=== PATIENT | female | born 1970 | race Caucasian/White ===

== ENCOUNTER → 2016-12-28 | Outpatient (CLI) | payer MEDICAID ==
[2016-12-28 09:15] LABS: ALT 61 U/L (9-52); AST 36 U/L (14-36); Alkaline Phosphatase 66 U/L (38-126); Anion Gap 11 mmol/L; Blood Urea Nitrogen 11 mg/dL (7-17); Calcium 9.2 mg/dL (8.4-10.2); Carbon Dioxide 28 mmol/L (22-30); Chloride 105 mmol/L (98-107); Glucose 90 mg/dL (74-99); Non-African American GFR(MDRD) >60 (>60 ml/min/1.73 sqM); Potassium 3.7 mmol/L (3.5-5.1); Sodium 144 mmol/L (137-145); Total Bilirubin 0.9 mg/dL (0.2-1.3); Total Protein 7.2 g/dL (6.3-8.2)
== END | disposition home or self-care (01) ==
LOC: RADXRMAIN 06:41
PROVIDERS: ATTEND Internal Medicine Critical Care Medicine
DX: D86.0 Sarcoidosis of lung (principal)
CPT/HCPCS: 80053

== ENCOUNTER 2017-02-18 21:43 | Emergency (ER) | payer MEDICAID ==
[2017-02-18 22:05] VITALS: RESP 20
--- NOTE | 2017-02-18 22:16 | ED ---
General Adult HPI - General Chief complaint: Extremity Injury, Lower Stated complaint: R ankle injury Time Seen by Provider: 02/18/17 22:07 Source: patient, RN notes reviewed Mode of arrival: wheelchair Limitations: no limitations - History of Present Illness Initial comments: 46-year-old female presenting for right ankle injury. Patient states that she was playing dodge ball and tripped on a ball and rolled her right ankle. She states that she is having trouble ambulating on this since the event occurred. She has pain and swelling on the lateral part of the ankle. She denies any other injury. - Related Data Home Medications Medication Instructions Recorded Confirmed B Complex-Vit C-Vit E-Zinc [Z-Bec] 1 each PO DAILY@1200 07/27/15 02/18/17 Esomeprazole Magnesium [NexIUM] 20 mg PO DAILY PRN 09/21/16 02/18/17 Hydroxychloroquine Sulfate 200 mg PO BID 09/21/16 02/18/17 [Plaquenil] Ferdinand-3 Fatty Acids/Fish Oil [Fish 1 each PO DAILY 09/21/16 02/18/17 Oil 1,000 mg Softgel] Ranitidine HCl [Zantac] 150 mg PO DAILY PRN 09/21/16 02/18/17 predniSONE 10 mg PO DAILY 09/21/16 02/18/17 Previous Rx's Medication Instructions Recorded Acetaminophen-Codeine 300-30mg 1 tab PO Q6H PRN #12 tablet 02/18/17 [Tylenol #3] Allergies Allergy/AdvReac Type Severity Reaction Status Date / Time azithromycin Allergy Unknown Verified 02/18/17 22:04 iodine Allergy Vomiting Verified 02/18/17 22:04 Penicillins Allergy Rash/Hives Verified 02/18/17 22:04 povidone-iodine AdvReac Rash/Hives Verified 02/18/17 22:04 [From Betadine] soap [From Betadine] AdvReac Rash/Hives Verified 02/18/17 22:04 Review of Systems ROS Statement: Those systems with pertinent positive or pertinent negative responses have been documented in the HPI. ROS Other: All systems not noted in ROS Statement are negative. Past Medical History Past Medical History: GERD/Reflux Additional Past Medical History / Comment(s): sarcoidosis, neurosarcoidosis, premature ovarian failure History of Any Multi-Drug Resistant Organisms: None Reported Past Surgical History: Orthopedic Surgery Additional Past Surgical History / Comment(s): plantar fasciitis-BILAT FEET. LAPAROSCOPY FOR ENDOMETRIOSIS Past Anesthesia/Blood Transfusion Reactions: No Reported Reaction Past Psychological History: No Psychological Hx Reported Smoking Status: Never smoker Past Alcohol Use History: Occasional Past Drug Use History: None Reported - Past Family History Father Family Medical History: Cancer Additional Family Medical History / Comment(s): PROSTATE Mother Family Medical History: Cancer Additional Family Medical History / Comment(s): SKIN General Exam - General Exam Comments Initial Comments: General: Awake and Alert. No acute distress. Does not appear acutely ill. Eyes: BJORN, EOM intact. No nystagmus. No scleral icterus. HENT: Atraumatic, normocephalic. Mucous membranes moist. Trachea midline. Neck: The neck is supple, there is no tenderness or JVD. Cardiovascular: Regular rate and rhythm. No murmur, rub, or gallop is appreciated. Distal pulses intact. Respiratory: Lungs are clear to auscultation bilaterally. No wheezes, rales, rhonchi. No respiratory distress. Gastrointestinal: Soft, Nontender. No rebound or guarding. Non-distended. No masses or organomegaly noted. No CVA tenderness. Musculoskeletal: Right ankle with lateral swelling and possible deformity. Pain with range of motion. No tenderness. Normal ROM. No gross deformity. No strength deficits. Neurological: A&Ox3. CN II-XII grossly intact, There are no obvious motor or sensory deficits. Coordination appears grossly intact. Speech is normal. Skin: Skin is warm and dry and no rashes or lesions are noted. Psychiatric: Cooperative, appropriate mood & affect, normal judgment. Limitations: no limitations Course Vital Signs 02/18/17 02/18/17 22:03 23:15 Temperature 98.2 F 97.9 F Pulse Rate 100 89 Respiratory 20 20 Rate Blood Pressure 146/70 137/65 O2 Sat by Pulse 97 98 Oximetry Procedures - Orthopedic Splinting/Casting Injury #1 Side: right Lower Extremity Injury Location: ankle Lower Extremity Immobilizer: posterior splint Medical Decision Making - Medical Decision Making 46-year-old female presenting for right ankle injury. Declines pain medication in the ED. XR without fracture, likely high grade sprain given swelling and pain. Has crutches at home. Put in a posterior OCL splint for ankle support. Discussed advancing weightbearing as tolerated with crutches support. Discussed follow-up with orthopedic. Discussed concerning signs symptoms related return to ED. Discussed returning in 4-5 days if pain is not improved for repeat x-ray rule out occult fracture. Patient is agreeable with plan and discharge home. Rx for pain medicine provided. - Radiology Data Radiology results: report reviewed, image reviewed Disposition Clinical Impression: Right ankle sprain Disposition: HOME SELF-CARE Condition: Stable Instructions: Ankle Sprain (ED) Additional Instructions: Please wear ankle cast and use crutches and advance to weight bearing over the next 1-2 weeks. Please follow up with Ortho Monday or Monday. If pain is not improving in 4-5 days, please follow up for repeat imaging to rule out occult fracture. Prescriptions: Acetaminophen-Codeine 300-30mg [Tylenol #3] 1 tab PO Q6H PRN #12 tablet PRN Reason: Pain Referrals: Jose Miller MD [Primary Care Provider] - 1-2 days Time of Disposition: 23:15
--- NOTE | 2017-02-18 22:42 | XR ---
EXAM: XR Right Ankle Complete, 3 or More Views. CLINICAL HISTORY: Pain. TECHNIQUE: Frontal, lateral and oblique views of the right ankle. COMPARISON: No relevant prior studies available. FINDINGS: Bones/joints: Small well-corticated ossific focus inferior to the tip of the medial malleolus appears chronic. Allowing for this there is no acute fracture seen. Minor enthesopathic changes at the Achilles insertion site with small plantar calcaneal spur noted on the lateral view. No dislocation. Soft tissues: There is anterolateral soft tissue swelling. IMPRESSION: 1. Mild anterolateral soft tissue swelling. 2. Small well-corticated ossific focus that appears chronic, inferior to the tip of the medial malleolus. 3. Allowing for this there is no acute osseous abnormality seen. Acute nondisplaced fractures may initially be radiographically occult. Short- term follow-up could be obtained in 5-7 days if concern or symptoms persist.
[2017-02-18 23:16] VITALS: BP 137/65; PULSE 89; TEMP 97.9
== END 2017-02-18 23:15 | disposition home or self-care (01) ==
LOC: EC 21:43
DX: S93.401A Sprain of unspecified ligament of right ankle, initial encounter (principal); K21.9 Gastro-esophageal reflux disease without esophagitis; Z79.52 Long term (current) use of systemic steroids; Z79.899 Other long term (current) drug therapy; Z88.0 Allergy status to penicillin; Z88.1 Allergy status to other antibiotic agents; Z91.09 Other allergy status, other than to drugs and biological substances; Z88.8 Allergy status to other drugs, medicaments and biological substances; X50.9XXA Other and unspecified overexertion or strenuous movements or postures, initial encounter; W22.8XXA Striking against or struck by other objects, initial encounter; Y93.69 Activity, other involving other sports and athletics played as a team or group
CPT/HCPCS: 29515; 99283

== ENCOUNTER → 2017-08-22 | Outpatient (CLI) | payer MEDICAID ==
[2017-08-22 08:30] LABS: Basophils % (A) 1 %; CH 29.5; CHCM 33.3; Eosinophils # (A) 0.1 k/uL (0-0.7); Eosinophils % (A) 3 %; HCT 43.4 % (34.0-46.0); HDW 2.64; HGB 14.9 gm/dL (11.4-16.0); Luc # (Auto) 0.14; Luc % (Auto) 3; Lymphocytes % (A) 43 %; MCH 30.5 pg (25.0-35.0); MCHC 34.2 g/dL (31.0-37.0); MCV 89.1 fL (80.0-100.0); Mean Platelet Volume 6.5; Monocytes # (A) 0.3 k/uL (0-1.0); Monocytes % (A) 7 %; Neutrophils % (A) 43 %; RBC 4.87 m/uL (3.80-5.40); RDW 13.3 % (11.5-15.5); WBC 4.5 k/uL (3.8-10.6)
[2017-08-22 08:35] LABS: ALT 75 U/L (9-52); AST 39 U/L (14-36); Alkaline Phosphatase 91 U/L (38-126); Anion Gap 10 mmol/L; Blood Urea Nitrogen 12 mg/dL (7-17); Calcium 9.4 mg/dL (8.4-10.2); Carbon Dioxide 26 mmol/L (22-30); Chloride 106 mmol/L (98-107); Cholesterol 204 mg/dL (<200); Glucose 94 mg/dL (74-99); HDL Cholesterol 63 mg/dL (40-60); Non-African American GFR(MDRD) >60 (>60 ml/min/1.73 sqM); Potassium 4.1 mmol/L (3.5-5.1); Sodium 142 mmol/L (137-145); Total Bilirubin 0.8 mg/dL (0.2-1.3); Total Protein 7.1 g/dL (6.3-8.2)
== END ==
LOC: RADXRMAIN 06:59
PROVIDERS: ATTEND Family Medicine
DX: E03.9 Hypothyroidism, unspecified (principal); E66.9 Obesity, unspecified; D86.9 Sarcoidosis, unspecified
CPT/HCPCS: 80053; 80061; 84439; 84443; 85025

== ENCOUNTER → 2017-09-01 | Outpatient (CLI) | payer MEDICAID ==
--- NOTE | 2017-09-01 15:06 | US ---
EXAMINATION TYPE: US abdomen complete DATE OF EXAM: 09/01/2017 COMPARISON: NONE CLINICAL HISTORY: R74.8 Elevated liver enymes. EXAM MEASUREMENTS: Liver Length: 16.0 cm Gallbladder Wall: 0.1 cm CBD: 0.3 cm Spleen: 11.1 cm Right Kidney: 10.7 x 4.8 x 5.1 cm Left Kidney: 11.2 x 4.9 x 4.9 cm Pancreas: Tail obscured by overlying bowel gas Liver: Increased attenuation, decreased visualization of vessels suggestive of fatty infiltrate Gallbladder: wnl Evidence for sonographic Harrell's sign: no CBD: limited visualization, appears wnl Spleen: wnl Right Kidney: No hydronephrosis or masses seen Left Kidney: No hydronephrosis or masses seen Upper IVC: wnl Abd Aorta: wnl The liver is coarse in its overall echo texture. The intrahepatic portion of the IVC and proximal abd ominal aorta are within normal limits. There is no evidence of cholelithiasis. Common bile duct is unremarkable. The visualized portions of the pancreas are homogenous. The spleen is unremarkable. Kidneys are symmetric and free of hydronephrosis. No renal lesions are seen. IMPRESSION: 1. Fatty liver.
== END | disposition home or self-care (01) ==
LOC: RADUSMAIN 06:35
PROVIDERS: ATTEND Family Medicine
DX: K76.0 Fatty (change of) liver, not elsewhere classified (principal); R74.9 Abnormal serum enzyme level, unspecified
CPT/HCPCS: 76700

== ENCOUNTER → 2017-10-20 | Outpatient (CLI) | payer MEDICAID ==
--- NOTE | 2017-10-20 15:02 | MR ---
EXAMINATION TYPE: MR brain wo/w con DATE OF EXAM: 10/20/2017 COMPARISON: 07/27/2015 HISTORY: Neurosarcoidosis, difficulty with memory, intermittent pain in parotid glands TECHNIQUE: Multiplanar, multisequence images of the brain and brainstem is performed without and with IV contras t, utilizing 9 mL intravenous Gadavist . FINDINGS: Diffusion weighted images demonstrate no evidence of a recent infarct or other diffusion ab normality. The multiple foci of T2/FLAIR hyperintensity without enhancement or surrounding vasogenic edema are s imilar in number to the prior of 07/27/2015 but slightly pronounced and more conspicuous than on the p rior exam. The largest on the right is seen on flair axial fat sat image 19 measuring 4 mm and previo usly measuring 3 mm. The largest on the left is seen on image 16 measuring 5 mm and previously measur ing 4 mm. No abnormal post contrast enhancement is seen intracranially. No evidence of leptomeningeal enhancement. There is no evidence of extra-axial fluid collection. The ventricular system and cister nal spaces are normal in size and appearance. The brain volume is age appropriate. Midline structures demonstrate normal morphology. The craniocervical junction appears within normal limits. The visualized sinuses are clear and the globes are intact. T2 mildly hypointense structure of the peripheral superficial lobe of the right parotid gland seen on T2 fat sat image 4 and partially visualized on postcontrast T1 axial image 3 appears to demonstrate enhancement. This could represent a lymph node within the parotid gland as it is unchanged dating [facility] k to 07/27/2015. Within the visualized parotid glands no new finding is seen. Lymph node is noted with in the left parotid gland on T2 fat sat axial image 2. This is also stable from the prior exam of 201 5. IMPRESSION: Stable number with slight increase in size and conspicuity of the nonenhancing T2/FLAIR hyperintense white matter foci that could be related to microangiopathy or the patient's known neurosarcoidosis. T here is no leptomeningeal enhancement or air enhancement around the cisternal spaces. Overall no abno rmal intracranial enhancement.
== END | disposition home or self-care (01) ==
LOC: RADMRIMAIN 13:45
PROVIDERS: ATTEND Internal Medicine Critical Care Medicine
DX: R90.82 White matter disease, unspecified (principal); D86.9 Sarcoidosis, unspecified
CPT/HCPCS: 70553; A9581

== ENCOUNTER → 2018-01-24 | Outpatient (CLI) | payer MEDICAID ==
--- NOTE | 2018-01-24 09:02 | CT ---
EXAMINATION TYPE: CT abdomen pelvis w con DATE OF EXAM: 01/24/2018 HISTORY: RLQ, LUQ pain, history of sarcoid CT DLP: 1831mGycm Automated Exposure Control for Dose Reduction was Utilized. CONTRAST: CT scan of the abdomen and pelvis is performed with IV Contrast, patient injected with 100 mL of Omni paque 300. COMPARISON: None. FINDINGS: LUNG BASES: No significant abnormality is appreciated. LIVER/GB: Liver appears diffusely hypoattenuated compatible with mild hepatic steatosis with minimal sparing around the gallbladder fossa in segment IVb of the liver. PANCREAS: No significant abnormality is seen. No ductal dilatation. SPLEEN: No significant abnormality is seen. No splenomegaly. ADRENALS: No significant abnormality is seen. No nodules. KIDNEYS: There are 3 punctate 1 to 2 mm right nonobstructing renal calculi and a 4 mm anterior left l ower pole renal lesion that is too small to accurately characterize. No evidence of hydroureteronephr osis or obstructive uropathy. Urinary bladder is partially decompressed but appears unremarkable. Sma ll urachal remnant is incidentally noted. BOWEL: Appendix is elongated extending into the low right hemipelvis. No periappendiceal fat strandin g. Appendix is air-filled and within normal limits of size. Bowel is nondilated. UTERUS/ADNEXA: No gross abnormality seen. LYMPH NODES: No greater than 1cm abdominal or pelvic lymph nodes are appreciated. OSSEOUS STRUCTURES: No significant abnormality is seen. OTHER: There is diastases recti and a subcentimeter fat filled umbilical hernia. IMPRESSION: 1. No CT findings to correspond to the patient's left upper quadrant pain. 2. Findings most compatible with mild hepatic steatosis. Correlate with LFTs. 3. 3 nonobstructing punctate right renal calculi. No evidence of hydronephrosis of either kidney.
== END ==
LOC: RADXRMAIN 07:36
PROVIDERS: ATTEND Family Medicine
DX: N20.0 Calculus of kidney (principal); D86.9 Sarcoidosis, unspecified
CPT/HCPCS: 74177; Q9967

== ENCOUNTER 2018-02-23 22:13 | Emergency (ER) | payer MEDICAID ==
[2018-02-23 22:22] LABS: Glucose,Whole Blood 104 mg/dL (75-99)
[2018-02-23 22:26] VITALS: TEMP 97.8
[2018-02-23] MEDS ORDERED: SODIUM CHLORIDE 0.9% 1,000 ML IV STA (22:26)
[2018-02-23] MEDS ORDERED: SODIUM CHLORIDE 0.9% 1,000 ML IV ONE (22:27)
--- NOTE | 2018-02-23 22:30 | ED ---
General Adult HPI - General Chief complaint: Syncope Stated complaint: Syncope, NVD Time Seen by Provider: 02/23/18 22:16 Source: patient, RN notes reviewed Mode of arrival: EMS Limitations: no limitations - History of Present Illness Initial comments: 47-year-old female presents for evaluation of syncopal episode. Patient states that earlier in the evening, she developed profound diarrhea, she had 8-10 episodes of watery diarrhea, she believes this was secondary to a fish sandwich she did eat around noon. She had one episode of vomiting and some right lower quadrant abdominal pain which she states is chronic in nature, and has been evaluated with a computed tomography scan approximately one month ago. Pain is unchanged today. No upper abdominal pain. Denies fever or chills. Denies cough or URI symptoms. Denies chest pain or shortness of breath. She states that she fell forward striking her right knee and chin. No significant injury to the patient was only unconscious for several minutes, she was found by her son. She did feel lightheaded prior to the event. No palpitations or chest pains preceding her syncopal episode. - Related Data Home Medications Medication Instructions Recorded Confirmed B Complex-Vit C-Vit E-Zinc [Z-Bec] 1 tab PO DAILY 07/27/15 02/23/18 Ergocalciferol (Vitamin D2) 50,000 unit PO WE 02/23/18 02/23/18 [Vitamin D2] Previous Rx's Medication Instructions Recorded Ondansetron Odt [Zofran Odt] 4 mg PO Q8HR PRN #10 tab 02/24/18 Allergies Allergy/AdvReac Type Severity Reaction Status Date / Time azithromycin Allergy Unknown Verified 02/23/18 23:13 iodine Allergy Rash/Hives/ Verified 02/23/18 23:13 Vomiting Penicillins Allergy Rash/Hives Verified 02/23/18 23:13 povidone-iodine AdvReac Rash/Hives Verified 02/23/18 23:13 [From Betadine] soap [From Betadine] AdvReac Rash/Hives Verified 02/23/18 23:13 Review of Systems ROS Statement: Those systems with pertinent positive or pertinent negative responses have been documented in the HPI. ROS Other: All systems not noted in ROS Statement are negative. Past Medical History Past Medical History: GERD/Reflux Additional Past Medical History / Comment(s): sarcoidosis, neurosarcoidosis, premature ovarian failure History of Any Multi-Drug Resistant Organisms: None Reported Past Surgical History: Orthopedic Surgery Additional Past Surgical History / Comment(s): plantar fasciitis-BILAT FEET. LAPAROSCOPY FOR ENDOMETRIOSIS Past Anesthesia/Blood Transfusion Reactions: No Reported Reaction Past Psychological History: No Psychological Hx Reported Smoking Status: Never smoker Past Alcohol Use History: Occasional Past Drug Use History: None Reported - Past Family History Father Family Medical History: Cancer Additional Family Medical History / Comment(s): PROSTATE Mother Family Medical History: Cancer Additional Family Medical History / Comment(s): SKIN General Exam Limitations: no limitations General appearance: alert, in no apparent distress Head exam: Present: atraumatic, normocephalic Eye exam: Present: normal appearance. Absent: PERRL, EOMI ENT exam: Present: mucous membranes dry Neck exam: Present: normal inspection. Absent: tenderness, meningismus Respiratory exam: Present: normal lung sounds bilaterally. Absent: respiratory distress, wheezes, rales Cardiovascular Exam: Present: normal rhythm, tachycardia GI/Abdominal exam: Present: soft, tenderness (Mild right lower quadrant tenderness to palpation). Absent: distended, guarding, rebound Extremities exam: Present: normal inspection, full ROM, normal capillary refill. Absent: tenderness, pedal edema Neurological exam: Present: alert, oriented X3, CN II-XII intact. Absent: motor sensory deficit Psychiatric exam: Present: normal affect, normal mood Skin exam: Present: warm, dry, intact. Absent: cyanosis, diaphoretic Course Vital Signs 02/23/18 22:22 Temperature 97.8 F Pulse Rate 108 H Respiratory 16 Rate Blood Pressure 126/72 O2 Sat by Pulse 100 Oximetry EKG Findings - EKG Comments: EKG Findings:: EKG, sinus tachycardia, ventricular rate 103, WA interval 138, QRS duration 82, QTC 453, no ST segment elevation or depression Medical Decision Making - Medical Decision Making 47-year-old female presenting with diarrhea, nausea vomiting, and syncopal episode. Patient appears volume depleted on exam, tachycardic dry mucous membranes. She does have some abdominal pain and right lower quadrant pain. X- rays obtained, shows air-fluid levels consistent with diarrhea. Laboratory studies are significant for leukocytosis 18.7, hemoglobin 14.1 H are normal, troponin negative urinalysis clear. Given the elevated white blood cell count of right lower quadrant pain although it is chronic, CT is obtained, this shows normal appendix, no significant finding to explain the patient's right lower quadrant pain. There is interstitial pulmonary infiltrate on CT. Patient admits that over the past week she had cough and chest congestion, this is improving. She will follow-up with her primary care physician for chest x-ray in the next several weeks. Patient is feeling better on reevaluation. She will be discharged home with nausea medication. She will maintain oral hydration, and return with any worsening or changing symptoms. - Lab Data Result diagrams: 02/23/18 22:25 02/23/18 22:25 Lab Results 02/23/18 02/23/18 02/23/18 Range/Units 22:21 22:25 22:25 WBC 18.7 H (3.8-10.6) k/uL RBC 4.97 (3.80-5.40) m/uL Hgb 14.1 (11.4-16.0) gm/dL Hct 42.5 (34.0-46.0) % MCV 85.5 D (80.0-100.0) fL MCH 28.3 (25.0-35.0) pg MCHC 33.1 (31.0-37.0) g/dL RDW 13.4 (11.5-15.5) % Plt Count 299 (150-450) k/uL Neutrophils % 87 % Lymphocytes % 7 % Monocytes % 4 % Eosinophils % 1 % Basophils % 0 % Neutrophils # 16.3 H (1.3-7.7) k/uL Lymphocytes # 1.3 (1.0-4.8) k/uL Monocytes # 0.7 (0-1.0) k/uL Eosinophils # 0.2 (0-0.7) k/uL Basophils # 0.1 (0-0.2) k/uL PT (9.0-12.0) sec INR (<1.2) APTT (22.0-30.0) sec Sodium (137-145) mmol/L Potassium (3.5-5.1) mmol/L Chloride (98-107) mmol/L Carbon Dioxide (22-30) mmol/L Anion Gap mmol/L BUN (7-17) mg/dL Creatinine (0.52-1.04) mg/dL Est GFR (CKD-EPI)AfAm (>60 ml/min/1.73 sqM) Est GFR (CKD-EPI)NonAf (>60 ml/min/1.73 sqM) Glucose (74-99) mg/dL POC Glucose (mg/dL) 104 H (75-99) mg/dL POC Glu Balance And [employer]er ID Danielito Bueno Calcium (8.4-10.2) mg/dL Magnesium (1.6-2.3) mg/dL Total Bilirubin (0.2-1.3) mg/dL AST (14-36) U/L ALT (9-52) U/L Alkaline Phosphatase (38-126) U/L Total Creatine Kinase 110 (30-135) U/L CK-MB (CK-2) 0.4 (0.0-2.4) ng/mL CK-MB (CK-2) Rel Index 0.4 Troponin I <0.012 (0.000-0.034) ng/mL Total Protein (6.3-8.2) g/dL Albumin (3.5-5.0) g/dL Urine Color Urine Appearance (Clear) Urine pH (5.0-8.0) Ur Specific [place] (1.001-1.035) Urine Protein (Negative) Urine Glucose (UA) (Negative) Urine Ketones (Negative) Urine Blood (Negative) Urine Nitrite (Negative) Urine Bilirubin (Negative) Urine Urobilinogen (<2.0) mg/dL Ur Leukocyte Esterase (Negative) Urine RBC (0-5) /hpf Urine WBC (0-5) /hpf Ur Squamous Epith Cells (0-4) /hpf Urine Bacteria (None) /hpf Hyaline Casts (0-2) /lpf Urine Mucus (None) /hpf 02/23/18 02/23/18 02/23/18 Range/Units 22:25 22:25 23:02 WBC (3.8-10.6) k/uL RBC (3.80-5.40) m/uL Hgb (11.4-16.0) gm/dL Hct (34.0-46.0) % MCV (80.0-100.0) fL MCH (25.0-35.0) pg MCHC (31.0-37.0) g/dL RDW (11.5-15.5) % Plt Count (150-450) k/uL Neutrophils % % Lymphocytes % % Monocytes % % Eosinophils % % Basophils % % Neutrophils # (1.3-7.7) k/uL Lymphocytes # (1.0-4.8) k/uL Monocytes # (0-1.0) k/uL Eosinophils # (0-0.7) k/uL Basophils # (0-0.2) k/uL PT 10.0 (9.0-12.0) sec INR 1.0 (<1.2) APTT 22.9 (22.0-30.0) sec Sodium 143 (137-145) mmol/L Potassium 4.7 (3.5-5.1) mmol/L Chloride 104 (98-107) mmol/L Carbon Dioxide 26 (22-30) mmol/L Anion Gap 13 mmol/L BUN 14 (7-17) mg/dL Creatinine 0.70 (0.52-1.04) mg/dL Est GFR (CKD-EPI)AfAm >90 (>60 ml/min/1.73 sqM) Est GFR (CKD-EPI)NonAf >90 (>60 ml/min/1.73 sqM) Glucose 111 H (74-99) mg/dL POC Glucose (mg/dL) (75-99) mg/dL POC Glu Balance And [employer]er ID Calcium 9.2 (8.4-10.2) mg/dL Magnesium 1.9 (1.6-2.3) mg/dL Total Bilirubin 1.0 (0.2-1.3) mg/dL AST 36 (14-36) U/L ALT 32 (9-52) U/L Alkaline Phosphatase 88 (38-126) U/L Total Creatine Kinase (30-135) U/L CK-MB (CK-2) (0.0-2.4) ng/mL CK-MB (CK-2) Rel Index Troponin I (0.000-0.034) ng/mL Total Protein 7.3 (6.3-8.2) g/dL Albumin 4.1 (3.5-5.0) g/dL Urine Color Yellow Urine Appearance Clear (Clear) Urine pH 6.0 (5.0-8.0) Ur Specific [place] 1.024 (1.001-1.035) Urine Protein 1+ H (Negative) Urine Glucose (UA) Negative (Negative) Urine Ketones Negative (Negative) Urine Blood Negative (Negative) Urine Nitrite Negative (Negative) Urine Bilirubin Negative (Negative) Urine Urobilinogen <2.0 (<2.0) mg/dL Ur Leukocyte Esterase Negative (Negative) Urine RBC 1 (0-5) /hpf Urine WBC 2 (0-5) /hpf Ur Squamous Epith Cells <1 (0-4) /hpf Urine Bacteria Rare H (None) /hpf Hyaline Casts 7 H (0-2) /lpf Urine Mucus Few H (None) /hpf Disposition Clinical Impression: Dehydration, Syncope due to orthostatic hypotension, Gastroenteritis Disposition: HOME SELF-CARE Condition: Good Instructions: Gastroenteritis (ED), Dehydration (ED), Syncope (ED) Prescriptions: Ondansetron Odt [Zofran Odt] 4 mg PO Q8HR PRN #10 tab PRN Reason: Vomiting Referrals: Batsheva Mendosa MD [Primary Care Provider] - 1-2 days Time of Disposition: 00:18
[2018-02-23 22:42] LABS: Basophils # (A) 0.1 k/uL (0-0.2); Basophils % (A) 0 %; Eosinophils # (A) 0.2 k/uL (0-0.7); Eosinophils % (A) 1 %; HCT 42.5 % (34.0-46.0); HGB 14.1 gm/dL (11.4-16.0); Lymphocytes # (A) 1.3 k/uL (1.0-4.8); Lymphocytes % (A) 7 %; MCH 28.3 pg (25.0-35.0); MCHC 33.1 g/dL (31.0-37.0); Mean Platelet Volume 7.4; Monocytes # (A) 0.7 k/uL (0-1.0); Monocytes % (A) 4 %; Neutrophils # (A) 16.3 k/uL (1.3-7.7); Neutrophils % (A) 87 %; Platelet Count 299 k/uL (150-450); RBC 4.97 m/uL (3.80-5.40); RDW 13.4 % (11.5-15.5); WBC 18.7 k/uL (3.8-10.6)
[2018-02-23 22:45] LABS: MCV 85.5 fL (80.0-100.0)
[2018-02-23 22:51] LABS: Anion Gap 13 mmol/L; Calcium 9.2 mg/dL (8.4-10.2); Carbon Dioxide 26 mmol/L (22-30); Chloride 104 mmol/L (98-107); Glucose 111 mg/dL (74-99); Partial Thromboplastin Time 22.9 sec (22.0-30.0); Sodium 143 mmol/L (137-145)
--- NOTE | 2018-02-23 22:52 | XR ---
EXAMINATION TYPE: XR chest 2V DATE OF EXAM: 02/23/2018 COMPARISON: 03/17/2015 HISTORY: Syncope TECHNIQUE: Frontal and lateral views of the chest are obtained. FINDINGS: There is no heart failure nor confluent pneumonic infiltrate. Costophrenic angles are antwon r. Heart and mediastinum are normal. There are chest leads. Bony thorax is intact. IMPRESSION: Normal chest. No change.
[2018-02-23 22:55] LABS: ALT 32 U/L (9-52); AST 36 U/L (14-36); Albumin 4.1 g/dL (3.5-5.0); Alkaline Phosphatase 88 U/L (38-126); Blood Urea Nitrogen 14 mg/dL (7-17); Magnesium 1.9 mg/dL (1.6-2.3); Potassium 4.7 mmol/L (3.5-5.1); Total Protein 7.3 g/dL (6.3-8.2)
--- NOTE | 2018-02-23 22:55 | XR ---
EXAMINATION TYPE: XR KUB DATE OF EXAM: 02/23/2018 COMPARISON: 09/14/2016 HISTORY: Right lower quadrant pain TECHNIQUE: 2 views FINDINGS: Bowel gas pattern is normal. There is no sign of intestinal obstruction or pneumoperitoneum . There are a few large bowel fluid levels on the left side. There are no pathologic calcifications over the kidneys. IMPRESSION: There are a few large bowel fluid levels that could relate to diarrhea. No free air.
[2018-02-23 23:15] LABS: Creatine Kinase 110 U/L (30-135)
[2018-02-23] MEDS ORDERED: RX INFO: IV CONTRAST WAS GIVEN 1 EACH MISC MISCELLANE PRN (23:20)
[2018-02-23] MEDS ORDERED: diphenhydrAMINE 50 MG/ML 1 ML VIAL IVP STA (23:21)
[2018-02-23] MEDS ORDERED: methylPREDNISolone SOD SUCCI 125 MG/2 ML VIAL IV STA (23:21)
[2018-02-23] MEDS ORDERED: FAMOTIDINE 20 MG/2 ML VIAL IV STA (23:21)
[2018-02-23 23:24] LABS: Appearance,Urine Clear (Clear); Bacteria,Urine Rare /hpf; Bilirubin,Urine Negative (Negative); Blood,Urine Negative (Negative); Color,Urine Yellow; Glucose,Urine (UA) Negative (Negative); Hyaline Casts,Urine 7 /lpf (0-2); Ketones,Urine Negative (Negative); Leukocyte Esterase,Urine Negative (Negative); Mucus,Urine Few /hpf; Nitrite,Urine Negative (Negative); Protein,Urine 1+ (Negative); RBC,Urine 1 /hpf (0-5); Specific Gravity,Urine 1.024 (1.001-1.035); Squamous Epithelial Cell,Urine <1 /hpf (0-4); Urobilinogen,Urine <2.0 mg/dL (<2.0); WBC,Urine 2 /hpf (0-5)
[2018-02-23 23:28] LABS: Creatine Kinase MB 0.4 ng/mL (0.0-2.4); Troponin I <0.012 ng/mL (0.000-0.034)
--- NOTE | 2018-02-24 00:08 | CT ---
EXAMINATION TYPE: CT abdomen pelvis w con DATE OF EXAM: 02/23/2018 COMPARISON: NONE HISTORY: Prior on synapse, syncope, RLQ pain, vomiting, and elevated WBCs, IV only CT DLP: 939.00 mGycm Automated exposure control for dose reduction was used. TECHNIQUE: Helical acquisition of images was performed from the lung bases through the pelvis. CONTRAST: Performed without Oral Contrast and with IV Contrast, patient injected with 100 mL of Isovue 300. FINDINGS: There is mild increased interstitial density at the lung bases. There is no pleural effusion. There i s no pericardial effusion. There is slight decreased density in the liver consistent with fatty infiltration. Gallbladder appear s normal. Spleen and pancreas appear normal. There is no adrenal mass. Kidneys have normal size and contour. There is no hydronephrosis. There is normal contrast opacification of the kidneys. There are a few tiny calcifications in the right kidney . Ureters are not dilated. There is no retroperitoneal adenopathy. There is no ascites. I see no intestinal wall thickening. The re are no dilated loops. Bladder distends smoothly. There is no sign of a pelvic mass. Uterus is anteverted. I see no bony destructive process. There is no evidence of a hernia. Appendix a ppears normal. IMPRESSION: THERE IS NEW MILD GROUNDGLASS INTERSTITIAL INFILTRATE THE LUNG BASES COMPARED TO RECENT EXAM. NO PULM ONARY MASS OR CONSOLIDATION. THIS COULD RELATE TO INTERSTITIAL PNEUMONIA. MILD FATTY INFILTRATION OF THE LIVER. I DO NOT SEE A CAUSE FOR RIGHT LOWER QUADRANT PAIN. NORMAL APPENDIX.
[2018-02-24 01:07] VITALS: PULSE 99; RESP 19
[2018-02-24 01:13] VITALS: BP 133/70
== END 2018-02-24 00:20 | disposition home or self-care (01) ==
LOC: EC 22:13
DX: I95.1 Orthostatic hypotension (principal); K52.9 Noninfective gastroenteritis and colitis, unspecified; E86.0 Dehydration; Z88.0 Allergy status to penicillin; Z88.1 Allergy status to other antibiotic agents; Z88.8 Allergy status to other drugs, medicaments and biological substances; Z91.048 Other nonmedicinal substance allergy status; Z79.899 Other long term (current) drug therapy
CPT/HCPCS: 99285; 96374; 96375 ×2; 96361; 36415; 93005; 80053; 82550; 82553; 83735; 84484; 85025; 85610; 85730; 81001; 71046; 74018; 74177; J1200; J2930; Q9967

== ENCOUNTER → 2018-04-25 | Outpatient (CLI) | payer MEDICAID ==
--- NOTE | 2018-04-26 13:39 | MM ---
Reason for exam: screening (asymptomatic). Last mammogram was performed 3 years and 1 month ago. History: Patient is postmenopausal and had first child at age 38. Physical Findings: A clinical breast exam by your physician is recommended on an annual basis and results should be correlated with mammographic findings. MG 3D Screening Mammo W/Cad Bilateral CC and MLO view(s) were taken. Prior study comparison: April 09, 2015, mammogram, performed at [facility]. March 28, 2014, mammogram, performed at [facility]. The breast tissue is heterogeneously dense. This may lower the sensitivity of mammography. No suspicious abnormality. No significant changes when compared with prior studies. ASSESSMENT: Negative, BI-RAD 1 RECOMMENDATION: Routine screening mammogram of both breasts in 1 year.
== END | disposition home or self-care (01) ==
LOC: RADMAMWWP 14:36
PROVIDERS: ATTEND Obstetrics & Gynecology
DX: Z12.31 Encounter for screening mammogram for malignant neoplasm of breast (principal)
CPT/HCPCS: 77063; 77067

== ENCOUNTER → 2018-08-28 | Outpatient (CLI) | payer MEDICAID ==
[2018-08-28 12:56] LABS: HCT 41.2 % (34.0-46.0); HGB 13.8 gm/dL (11.4-16.0); MCH 29.2 pg (25.0-35.0); MCHC 33.5 g/dL (31.0-37.0); Mean Platelet Volume 6.5; Platelet Count 290 k/uL (150-450); RBC 4.73 m/uL (3.80-5.40); RDW 13.7 % (11.5-15.5); WBC 8.4 k/uL (3.8-10.6)
[2018-08-28 13:01] LABS: Albumin 4.3 g/dL (3.5-5.0); Bilirubin, Delta 0.2 mg/dL (0.0-0.2); Bilirubin,Unconjugated 0.4 mg/dL (0.0-1.1); Total Bilirubin 0.6 mg/dL (0.2-1.3); Total Protein 7.3 g/dL (6.3-8.2)
== END | disposition home or self-care (01) ==
LOC: RADXRMAIN 08:22
PROVIDERS: ATTEND Internal Medicine
DX: D86.89 Sarcoidosis of other sites (principal)
CPT/HCPCS: 36415; 80076; 85027

== ENCOUNTER → 2018-09-12 | Outpatient (CLI) | payer MEDICAID ==
[2018-09-12 14:10] LABS: HCT 41.9 % (34.0-46.0); HGB 13.7 gm/dL (11.4-16.0); MCH 29.7 pg (25.0-35.0); MCHC 32.7 g/dL (31.0-37.0); Mean Platelet Volume 6.3; Platelet Count 358 k/uL (150-450); RBC 4.61 m/uL (3.80-5.40); RDW 15.1 % (11.5-15.5); WBC 7.5 k/uL (3.8-10.6)
[2018-09-12 14:20] LABS: Albumin 4.1 g/dL (3.5-5.0); Bilirubin, Delta 0.4 mg/dL (0.0-0.2); Bilirubin,Unconjugated 0.1 mg/dL (0.0-1.1); Total Bilirubin 0.5 mg/dL (0.2-1.3); Total Protein 7.2 g/dL (6.3-8.2)
== END | disposition home or self-care (01) ==
LOC: LAB 11:54
PROVIDERS: ATTEND Internal Medicine
DX: D86.89 Sarcoidosis of other sites (principal)
CPT/HCPCS: 80076; 85027

== ENCOUNTER → 2019-02-11 | Outpatient (CLI) | payer MEDICAID ==
--- NOTE | 2019-02-11 12:26 | CT ---
EXAMINATION TYPE: CT sinus wo con DATE OF EXAM: 02/11/2019 COMPARISON: MRI brain dated 10/20/2017 HISTORY: Lt periorbital discomfort, history of sarcoidosis CT DLP: 588 mGycm. Automated Exposure Control for Dose Reduction was Utilized. TECHNIQUE: CT scan of the sinuses is performed without contrast, axial images are obtained, coronal r eformatted images are also reviewed. FINDINGS: The ostiomeatal complexes are patent bilaterally. No significant asymmetric nasal turbinate mucosal hypertrophy is seen. There is a small leftward nasal septal spur and minimal leftward nasal septal bowing without significant deviation. There are bilateral Parth cells that are nonobstructive . The left Parth cell is mucus filled. Mild mucosal thickening is seen multifocally within the ethmo id sinuses. Frontal recesses appear patent. Frontal sinuses, maxillary sinuses, and sphenoid sinuses as well as the visualized portions of the mastoid air cells are well aerated. No middle ear cavity fl uid is seen. The superior ophthalmic veins are unremarkable caliber. Orbital nerves are symmetric. Globes and ocul ar lenses are also symmetric. There is increased attenuation and thickening of the bilateral medial r ectus muscles such as on axial series 3 image 32 and comparison to the lateral rectus muscles. No pre septal or post septal inflammatory fat stranding is seen. IMPRESSION: 1. There is mild symmetric thickening of the medial rectus musculature bilaterally. Orbital myositis as sequela of sarcoidosis is a consideration. 2. Bilateral Parth cells, opacified on the left but overall nonobstructive as the ostia medial compl exes are patent. 3. Mild ethmoid mucosal thickening appears somewhat polypoid.
== END | disposition home or self-care (01) ==
LOC: RADCTMAIN 11:52
PROVIDERS: ATTEND Internal Medicine
DX: H05.129 Orbital myositis, unspecified orbit (principal); J34.89 Other specified disorders of nose and nasal sinuses
CPT/HCPCS: 70486

== ENCOUNTER → 2019-03-08 | Outpatient (CLI) | payer MEDICAID ==
[2019-03-08 08:02] LABS: HCT 42.4 % (34.0-46.0); HGB 13.6 gm/dL (11.4-16.0); MCH 29.2 pg (25.0-35.0); MCV 91.2 fL (80.0-100.0); Mean Platelet Volume 6.6; Platelet Count 266 k/uL (150-450); RBC 4.65 m/uL (3.80-5.40); RDW 14.2 % (11.5-15.5); WBC 6.1 k/uL (3.8-10.6)
[2019-03-08 08:32] LABS: Albumin 4.4 g/dL (3.5-5.0); Bilirubin, Delta 0.2 mg/dL (0.0-0.2); Bilirubin,Unconjugated 0.6 mg/dL (0.0-1.1); Total Bilirubin 0.8 mg/dL (0.2-1.3); Total Protein 6.9 g/dL (6.3-8.2)
== END ==
LOC: RADXRMAIN 07:19
PROVIDERS: ATTEND Internal Medicine
DX: D86.89 Sarcoidosis of other sites (principal)
CPT/HCPCS: 80076; 85027

== ENCOUNTER → 2019-03-13 | Outpatient (CLI) | payer MEDICAID ==
[2019-03-13 09:57] LABS: T4, Free (Free Thyroxine) 1.02 ng/dL (0.78-2.19)
== END | disposition home or self-care (01) ==
LOC: RADXRMAIN 09:07
PROVIDERS: ATTEND Ophthalmology Ophthalmic Plastic and Reconstructive Surgery
DX: H05.243 Constant exophthalmos, bilateral (principal)
CPT/HCPCS: 84439; 84443; 84445; 84481; 86376

== ENCOUNTER → 2019-06-11 | Outpatient (CLI) | payer MEDICAID ==
--- NOTE | 2019-06-11 08:35 | CT ---
EXAMINATION TYPE: CT soft tissue neck w con DATE OF EXAM: 06/11/2019 HISTORY: Lt parotid swelling, history of sarcoidosis COMPARISON: Neck CT August 21, 2014 CT DLP: 599.1 mGycm. Automated Exposure Control for Dose Reduction was Utilized. TECHNIQUE: CT scan of the neck is performed with IV Contrast, patient injected with 100 mL of Isovue 300, axial images are obtained, coronal and sagittal reformatted images are reviewed. FINDINGS: Airway: Slight asymmetry of the right inferior palatine tonsil, cannot exclude subtle mucosal lesion just superior to the right vallecula seen best coronal image 32 and axial image 54. Consider direct v isualization based on degree of clinical suspicion. Airway is otherwise patent. Thyroid gland remains within normal limits. Lung apices are clear without emphysematous change. Parotid/submandibular glands: Right parotid is slightly larger than left with lobe extension anterior ly axial image 64 noted. No significant surrounding inflammatory change or worrisome intraparotid fernando id or cystic mass is identified bilaterally. Submandibular glands are symmetric and felt within steven l limits. Carotid/Vascular Structures: No significant plaque or stenosis in the carotid bulb level bilaterally. Incidental codominant vertebrobasilar system. Osseous Structures: Loss of normal cervical curvature redemonstrated may be positional Other: No suspicious greater than 1 cm neck adenopathy. IMPRESSION: Stable slight asymmetric prominence to right parotid gland without suspicious mass or waqar rounding inflammatory change.
== END | disposition home or self-care (01) ==
LOC: RADCTMAIN 07:00
PROVIDERS: ATTEND Otolaryngology
DX: K11.20 Sialoadenitis, unspecified (principal)
CPT/HCPCS: 70491; Q9967

== ENCOUNTER → 2019-11-18 | Outpatient (CLI) | payer MEDICAID ==
[2019-11-18 15:52] LABS: Basophils % (A) 1 %; Eosinophils # (A) 0.2 k/uL (0-0.7); Eosinophils % (A) 3 %; HCT 38.8 % (34.0-46.0); Lymphocytes % (A) 41 %; MCH 29.4 pg (25.0-35.0); MCHC 33.6 g/dL (31.0-37.0); MCV 87.5 fL (80.0-100.0); Mean Platelet Volume 6.9; Monocytes # (A) 0.4 k/uL (0-1.0); Monocytes % (A) 9 %; Neutrophils # (A) 2.2 k/uL (1.3-7.7); Neutrophils % (A) 45 %; Platelet Count 253 k/uL (150-450); RBC 4.43 m/uL (3.80-5.40); RDW 12.8 % (11.5-15.5)
[2019-11-18 21:05] LABS: Erythrocyte Sedimentation Rate 6 mm/hr (0-20)
[2019-11-18 23:58] LABS: African American GFR (CKD) 100.3 (60.0-200.0); Albumin 4.2 g/dL (3.80-4.90); Albumin/Globulin Ratio 2.33 (1.60-3.17); Anion Gap 6.9 mmol/L (4.00-12.00); BUN/Creat Ratio 17.5 Ratio (12.00-20.00); Calcium 8.8 mg/dL (8.7-10.3); Carbon Dioxide 28.1 mmol/L (21.6-31.8); Globulin 1.8 g/dL (1.6-3.3); Non-African American GFR(CKD) 86.6 (60.0-200.0); Total Bilirubin 0.6 mg/dL (0.2-1.2)
[2019-11-19 00:06] LABS: T4, Free (Free Thyroxine) 0.9 ng/dL (0.80-1.80)
== END | disposition home or self-care (01) ==
LOC: LABWHC1 14:53
PROVIDERS: ATTEND Internal Medicine Critical Care Medicine
DX: Z01.812 Encounter for preprocedural laboratory examination (principal); D86.9 Sarcoidosis, unspecified
CPT/HCPCS: 36415; 80053; 82164; 84439; 84443; 85025; 85652

== ENCOUNTER → 2019-12-24 | Outpatient (CLI) | payer MEDICAID ==
[2019-12-24 15:06] LABS: Basophils # (A) 0.1 k/uL (0-0.2); Basophils % (A) 1 %; Eosinophils # (A) 0.1 k/uL (0-0.7); Eosinophils % (A) 2 %; HCT 43.6 % (34.0-46.0); HGB 14.4 gm/dL (11.4-16.0); Lymphocytes # (A) 2.5 k/uL (1.0-4.8); Lymphocytes % (A) 44 %; MCH 28.7 pg (25.0-35.0); Mean Platelet Volume 7.2; Monocytes # (A) 0.4 k/uL (0-1.0); Monocytes % (A) 8 %; Neutrophils # (A) 2.4 k/uL (1.3-7.7); Neutrophils % (A) 43 %; Platelet Count 273 k/uL (150-450); RBC 5.01 m/uL (3.80-5.40); RDW 12.8 % (11.5-15.5); WBC 5.7 k/uL (3.8-10.6)
[2019-12-24 17:16] LABS: Erythrocyte Sedimentation Rate 6 mm/hr (0-20)
[2019-12-24 19:08] LABS: African American GFR (CKD) 100.3 (60.0-200.0); Albumin 4.5 g/dL (3.80-4.90); Albumin/Globulin Ratio 2.25 (1.60-3.17); Anion Gap 10.8 mmol/L (4.00-12.00); BUN/Creat Ratio 17.5 Ratio (12.00-20.00); Calcium 9.3 mg/dL (8.7-10.3); Carbon Dioxide 28.2 mmol/L (21.6-31.8); Non-African American GFR(CKD) 86.6 (60.0-200.0); Potassium 4.3 mmol/L (3.5-5.5); Total Bilirubin 0.7 mg/dL (0.2-1.2); Total Protein 6.5 g/dL (6.2-8.2)
[2019-12-24 19:15] LABS: T4, Free (Free Thyroxine) 1.1 ng/dL (0.80-1.80)
== END | disposition home or self-care (01) ==
LOC: LABWHC1 13:40
PROVIDERS: ATTEND Internal Medicine Critical Care Medicine
DX: D86.9 Sarcoidosis, unspecified (principal)
CPT/HCPCS: 36415; 80053; 82164; 84439; 84481; 85025; 85652

== ENCOUNTER → 2020-02-14 | Outpatient (CLI) | payer MEDICAID ==
--- NOTE | 2020-02-14 15:17 | CT ---
EXAMINATION TYPE: CT chest w con DATE OF EXAM: 02/14/2020 COMPARISON: Chest CT May 12, [address] March 2014 and March 30, 2011 HISTORY: Sarcoidosis. CT DLP: 520.30 mGycm. Automated Exposure Control for Dose Reduction was Utilized. TECHNIQUE: CT scan of the thorax is performed following with IV Contrast, patient injected with 100 mL of Isovue 300. FINDINGS: LUNGS: Low lung volumes. Lungs appear clear without suspicious consolidation. No significant reticula tion or fibrosis. No pleural effusion or pneumothorax. No suspicious nodules or masses. MEDIASTINUM: There are no greater than 1 cm hilar or mediastinal lymph nodes. No cardiomegaly or pe ricardial effusion is seen. OTHER: Liver is diffusely low dense consistent with fatty infiltration. Ywtj-ad-syqawffa multilevel s purring in the spine. IMPRESSION: No significant acute or chronic pulmonary process. No thoracic in particular hilar adenop athy.
== END | disposition home or self-care (01) ==
LOC: RADCTMAIN 14:39
PROVIDERS: ATTEND Internal Medicine Critical Care Medicine
DX: D86.9 Sarcoidosis, unspecified (principal)
CPT/HCPCS: 82164; 71260; Q9967

== ENCOUNTER → 2020-07-31 | Outpatient (CLI) | payer MEDICAID ==
[2020-07-31 19:26] LABS: Elm IgE <0.10 kU/L; Ragweed,Common IgE <0.10 kU/L
[2020-07-31 19:27] LABS: Aspergillus fumagatus IgE <0.10 kU/L; Red Top (Bentgrass) IgE <0.10 kU/L
[2020-07-31 19:28] LABS: Alternaria alternata IgE <0.10 kU/L; Immunoglobulin E 2.64 IU/mL (0.00-114.00); Immunoglobulin E 3.04 IU/mL (0.00-114.00); Maple (Box Elder) IgE <0.10 kU/L
[2020-07-31 19:29] LABS: Birch IgE <0.10 kU/L; Oak IgE <0.10 kU/L
[2020-07-31 19:31] LABS: Cat Epith & Dander IgE <0.10 kU/L; Cladosporian herbarum IgE <0.10 kU/L; Cockroach IgE <0.10 kU/L; Dermato. farinae IgE <0.10 kU/L; Dog Dander IgE <0.10 kU/L
[2020-07-31 19:32] LABS: Peanut IgE <0.10 kU/L; Shrimp IgE <0.10 kU/L; Soybean IgE <0.10 kU/L
[2020-07-31 19:34] LABS: Clam IgE <0.10 kU/L; Egg White IgE <0.10 kU/L; Scallop IgE <0.10 kU/L; Walnut IgE (Food) <0.10 kU/L
[2020-07-31 19:36] LABS: Codfish IgE <0.10 kU/L
[2020-08-04 14:47] LABS: Alt. alternata IgE Class CLASS 0; Alternaria alternata IgE <0.10 kU/L (<0.10); Asperg. fumagatus IgE <0.10 kU/L (<0.10); Asperg. fumagatus IgE Class CLASS 0; Bermuda Grass IgE <0.10 kU/L (<0.10); Birch(Com.Silvr) IgE <0.10 kU/L (<0.10); Birch(Com.Silvr) IgE Class CLASS 0; Cat Epith & Dander IgE <0.10 kU/L (<0.10); Cat Epith & Dander IgE Class CLASS 0; Clad herbarum IgE <0.10 kU/L (<0.10); Clad herbarum IgE Class CLASS 0; Cockroach IgE <0.10 kU/L (<0.10); Cottonwood IgE <0.10 kU/L (<0.10); Dermato. Pteronyssinus Class CLASS 0; Dermato. Pteronyssinus IgE <0.10 kU/L (<0.10); Dermato. farinae IgE <0.10 kU/L (<0.10); Dermato. farinae IgE Class CLASS 0; Dog Dander IgE <0.10 kU/L (<0.10); Elm IgE <0.10 kU/L (<0.10); IgE (Allergen) 4.3 IU/mL (<114.0); Maple (Box Elder) IgE <0.10 kU/L (<0.10); Maple (Box Elder) IgE Class CLASS 0; Mountain Cedar IgE <0.10 kU/L (<0.10); Mountain Cedar IgE Class CLASS 0; Mouse Urine IgE Class CLASS 0; Mouse Urine Proteins,IgE <0.10 kU/L (<0.10); Nettle IgE <0.10 kU/L (<0.10); Nettle IgE Class CLASS 0; Oak IgE <0.10 kU/L (<0.10); Penicillium chrysogenum IgE <0.10 kU/L (<0.10); Penicillium chrysogenum IgE Cl CLASS 0; Rough Marshelder IgE <0.10 kU/L (<0.10); Rough Marshelder IgE Class CLASS 0; Timothy Grass IgE <0.10 kU/L (<0.10); Timothy Grass IgE Class CLASS 0; White Ash IgE Class CLASS 0
== END | disposition home or self-care (01) ==
LOC: LABWHC1 08:11
PROVIDERS: ATTEND Internal Medicine Critical Care Medicine
DX: R05 Cough (principal); T78.40XA Allergy, unspecified, initial encounter
CPT/HCPCS: 36415; 82785; 86003

== ENCOUNTER → 2020-08-04 | Outpatient (CLI) | payer MEDICAID ==
--- NOTE | 2020-08-04 13:12 | CT ---
EXAMINATION TYPE: CT abdomen pelvis w con DATE OF EXAM: 08/04/2020 HISTORY: Right lower quadrant and pelvic pain x 1 month on and off. Hives x [address] DLP: 1836.8mGycm Automated Exposure Control for Dose Reduction was Utilized. CONTRAST: CT scan of the abdomen and pelvis is performed with IV Contrast, patient injected with 100 mL of Isov ue M300. COMPARISON: CT abdomen and pelvis February 23, 2018 FINDINGS: LUNG BASES: No significant abnormality is appreciated. LIVER/GB: Liver remains diffusely low dense consistent with diffuse fatty infiltration. PANCREAS: No significant abnormality is seen. SPLEEN: No significant abnormality is seen. ADRENALS: No significant abnormality is seen. KIDNEYS: On current study there are 4 calculi measuring 3 mm or smaller scattered throughout the righ t kidney. No left-sided renal calculi. Symmetrical motion of the uptake and excretion is seen without hydronephrosis appreciated bilaterally. No intraluminal calculus in the bladder. BOWEL: Oral contrast reaches level of the hepatic flexure. There is no suspicious small or large cailin l dilatation. Mild wall thickening in the sigmoid rectal colon favors product of poor distention, a m ild uncomplicated acute colitis cannot be excluded. UTERUS/ADNEXA: Anteverted uterus. Ovaries identified and normal in size. LYMPH NODES: No greater than 1cm abdominal or pelvic lymph nodes are appreciated. OSSEOUS STRUCTURES: No significant abnormality is seen. OTHER: Stable small fat-containing umbilical hernia. IMPRESSION: Possible mild uncomplicated acute distal colitis versus product of poor distention otherw ise no suspicious new or acute findings identified to account for patient's symptoms.
== END | disposition home or self-care (01) ==
LOC: RADCTMAIN 10:49
PROVIDERS: ATTEND Radiology Diagnostic Radiology
DX: R10.31 Right lower quadrant pain (principal)
CPT/HCPCS: 74177; Q9967 ×2

== ENCOUNTER → 2020-09-03 | Outpatient (CLI) | payer MEDICAID ==
[2020-09-03 13:44] LABS: Basophils % (A) 1 %; Eosinophils # (A) 0.2 k/uL (0-0.7); Eosinophils % (A) 3 %; HCT 40.9 % (34.0-46.0); HGB 13.4 gm/dL (11.4-16.0); Lymphocytes # (A) 2.6 k/uL (1.0-4.8); Lymphocytes % (A) 42 %; MCH 28.6 pg (25.0-35.0); MCHC 32.8 g/dL (31.0-37.0); MCV 87.1 fL (80.0-100.0); Mean Platelet Volume 6.6; Monocytes # (A) 0.5 k/uL (0-1.0); Monocytes % (A) 8 %; Neutrophils # (A) 2.7 k/uL (1.3-7.7); Neutrophils % (A) 45 %; Platelet Count 255 k/uL (150-450); RBC 4.69 m/uL (3.80-5.40); RDW 13.6 % (11.5-15.5)
[2020-09-03 20:00] LABS: Erythrocyte Sedimentation Rate 9 mm/Hr (0-20)
[2020-09-04 01:01] LABS: African American GFR (CKD) 99.6 (60.0-200.0); Albumin 4.2 g/dL (3.80-4.90); Albumin/Globulin Ratio 1.91 (1.60-3.17); Anion Gap 10.9 mmol/L (4.00-12.00); Calcium 9.4 mg/dL (8.7-10.3); Carbon Dioxide 24.1 mmol/L (21.6-31.8); Globulin 2.2 g/dL (1.6-3.3); Total Bilirubin 0.6 mg/dL (0.3-1.2); Total Protein 6.4 g/dL (6.2-8.2)
[2020-09-04 01:32] LABS: Immunoglobulin E 2.58 IU/mL (0.00-114.00)
== END | disposition home or self-care (01) ==
LOC: LABWHC1 13:13
PROVIDERS: ATTEND Specialist
DX: L50.1 Idiopathic urticaria (principal)
CPT/HCPCS: 36415; 80053; 82306; 82607; 82785; 85025; 85652; 86038; 86160

== ENCOUNTER 2020-11-03 10:03 | Day surgery (SDC) | payer MEDICAID ==
[2020-10-30 15:41] VITALS: BMI 36.1
[~2020-11-03 10:03] MED LIST: LACTATED RINGERS 1,000 ML IV SCH; LIDOCAINE 1% (10MG/ML) FOR IV START INTRADERMA PRN
[2020-11-03 10:29] VITALS: RESP 16; TEMP 98.6
[2020-11-03 10:52] LABS: Glucose,Whole Blood 93 mg/dL (75-99)
[2020-11-03] MEDS ORDERED: PROPOFOL 10 MG/ML 20 ML VIAL IV ONE (11:40)
--- NOTE | 2020-11-03 11:44 | P.GSHP ---
History of Present Illness H&P Date: 11/03/20 Chief Complaint: GERD, screening Patient here today for upper and lower endoscopy. Complains of chronic reflux. Reflux fairly well controlled with Nexium. Family history of inflammatory bowel disease in the father. Was having some diarrhea and right lower abdominal pain in July. CAT scan showed some possible colitis at that time. She is currently asymptomatic and here for screening. 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 History of Any Multi-Drug Resistant Organisms: None Reported Past Surgical History: Orthopedic Surgery Additional Past Surgical History / Comment(s): Plantar Fascitis-bilateral feet. LAPAROSCOPY FOR ENDOMETRIOSIS Past Anesthesia/Blood Transfusion Reactions: Motion Sickness Past Psychological History: No Psychological Hx Reported Smoking Status: Former smoker Past Alcohol Use History: Occasional Additional Past Alcohol Use History / Comment(s): Quit smoking in 2000. Past Drug Use History: None Reported - Past Family History Father Family Medical History: Cancer Additional Family Medical History / Comment(s): PROSTATE CANCER. Mother Family Medical History: Cancer Additional Family Medical History / Comment(s): SKIN CANCER. Medications and Allergies Home Medications Medication Instructions Recorded Confirmed Type Ascorbic Acid [Vitamin C] 500 mg PO DAILY 10/30/20 10/30/20 History Cetirizine HCl [Zyrtec] 10 mg PO DAILY 10/30/20 10/30/20 History Esomeprazole Magnesium [NexIUM] 20 mg PO DAILY 10/30/20 10/30/20 History L.acidoph,Paracasei, B.lactis 1 each PO DAILY 10/30/20 10/30/20 History [Probiotic] Multivitamins, Thera [Multivitamin 1 tab PO DAILY 10/30/20 10/30/20 History (formulary)] predniSONE 10 mg PO DAILY 10/30/20 10/30/20 History Allergies Allergy/AdvReac Type Severity Reaction Status Date / Time azithromycin Allergy Unknown Verified 11/03/20 10:27 iodine Allergy Rash/Hives/ Verified 11/03/20 10:27 Vomiting Penicillins Allergy Rash/Hives Verified 11/03/20 10:27 povidone-iodine AdvReac Rash/Hives Verified 11/03/20 10:27 [From Betadine] soap [From Betadine] AdvReac Rash/Hives Verified 11/03/20 10:27 Surgical - Exam Vital Signs Temp Pulse Resp BP Pulse Ox 98.6 F 102 H 16 162/93 98 11/03/20 10:23 11/03/20 10:23 11/03/20 10:23 11/03/20 10:23 11/03/20 10:23 Physical exam: General: Well-developed, well-nourished HEENT: Normocephalic, sclerae nonicteric Abdomen: Nontender, nondistended Extremities: No edema Neuro: Alert and oriented Assessment and Plan (1) GERD (gastroesophageal reflux disease) Narrative/Plan: Will proceed with upper and lower endoscopy Current Visit: Yes Status: Acute Code(s): K21.9 - GASTRO-ESOPHAGEAL REFLUX DISEASE WITHOUT ESOPHAGITIS SNOMED Code(s): 396902253
--- NOTE | 2020-11-03 12:08 | P.PCN ---
Date of Procedure: 11/03/20 Procedure(s) Performed: PREOPERATIVE DIAGNOSIS: GERD, screening POSTOPERATIVE DIAGNOSIS: Mild gastritis, gastric polyp, normal colon PROCEDURE: 1. EGD with biopsy 2. Colonoscopy ANESTHESIA: MAC SURGEON: Devante Reyes M.D. SPECIMENS: Antrum, gastric polyp ENDOSCOPIC PROCEDURE: The patient was on the endoscopy table in the left decubitus position. The Olympus gastroscope was inserted into the oropharynx and passed under direct visualization to the region of the third portion of the duodenum. From that point the scope was slowly withdrawn inspecting all surfaces carefully. There were no neoplastic inflammatory or polypoid lesions throughout the duodenum. The pylorus was widely patent. The stomach was carefully inspected. There was small polyp seen in the stomach. This was in the antrum. A biopsy was taken of the polyp. A biopsy was also taken of the antrum to rule out H. pylori. There was minimal gastritis. Retroflexion revealed a normal hiatus. The esophagus was then carefully examined. There were no neoplastic inflammatory or polypoid lesions throughout the visualized esophagus. The patient was kept on the endoscopy table in the left decubitus position. The Olympus colonoscope was inserted into the anus and passed under direct visualization to the base of the cecum. The appendiceal orifice was visualized. From that point the scope was slowly withdrawn inspecting all surfaces carefully. There were no neoplastic inflammatory or polypoid lesions throughout the cecum, ascending, transverse, descending, sigmoid and rectum. There was no visible diverticulosis noted. Digital rectal examination was normal. The patient was taken to the recovery room in stable condition per anesthesia guidelines. RECOMMENDATIONS: Await biopsy results. Follow-up colonoscopy 10 years
[2020-11-03 12:17] VITALS: PULSE 86
[2020-11-03 12:33] VITALS: BP 142/95
== END 2020-11-03 12:54 | disposition home or self-care (01) ==
LOC: ORWHC2ENDO 10:03
PROVIDERS: ATTEND Surgery
DX: Z12.11 Encounter for screening for malignant neoplasm of colon (principal); K29.50 Unspecified chronic gastritis without bleeding; K31.7 Polyp of stomach and duodenum; K21.9 Gastro-esophageal reflux disease without esophagitis; K76.0 Fatty (change of) liver, not elsewhere classified; D86.89 Sarcoidosis of other sites; E28.319 Asymptomatic premature menopause; L50.8 Other urticaria; N80.9 Endometriosis, unspecified; Z87.19 Personal history of other diseases of the digestive system; Z98.890 Other specified postprocedural states; Z87.39 Personal history of other diseases of the musculoskeletal system and connective tissue; Z87.898 Personal history of other specified conditions; Z87.891 Personal history of nicotine dependence; Z79.899 Other long term (current) drug therapy; Z79.52 Long term (current) use of systemic steroids; Z88.1 Allergy status to other antibiotic agents; Z91.048 Other nonmedicinal substance allergy status; Z88.0 Allergy status to penicillin; Z91.09 Other allergy status, other than to drugs and biological substances; Z80.42 Family history of malignant neoplasm of prostate; Z80.8 Family history of malignant neoplasm of other organs or systems
CPT/HCPCS: 88305; 43239; J2704; G0121

== ENCOUNTER 2020-11-14 23:41 | Observation (INO) | payer MEDICAID ==
[2020-11-14] MEDS ORDERED: ASPIRIN 81 MG PO STA (23:50)
[2020-11-14] MEDS ORDERED: NITROGLYCERIN SL TABS 0.4 MG TAB SUBLINGUAL STA (23:50)
[2020-11-15 00:10] LABS: Basophils # (A) 0.1 k/uL (0-0.2); Basophils % (A) 1 %; Eosinophils # (A) 0.2 k/uL (0-0.7); Eosinophils % (A) 2 %; HCT 41.8 % (34.0-46.0); HGB 14.3 gm/dL (11.4-16.0); Lymphocytes # (A) 3.1 k/uL (1.0-4.8); Lymphocytes % (A) 42 %; MCH 29.9 pg (25.0-35.0); MCHC 34.2 g/dL (31.0-37.0); MCV 87.5 fL (80.0-100.0); Mean Platelet Volume 6.6; Monocytes # (A) 0.5 k/uL (0-1.0); Monocytes % (A) 7 %; Neutrophils # (A) 3.4 k/uL (1.3-7.7); Neutrophils % (A) 46 %; Platelet Count 248 k/uL (150-450); RBC 4.78 m/uL (3.80-5.40); RDW 13.3 % (11.5-15.5); WBC 7.4 k/uL (3.8-10.6)
[2020-11-15 00:18] LABS: African American GFR (CKD) >90 (>60 ml/min/1.73 sqM); Anion Gap 5 mmol/L; Blood Urea Nitrogen 16 mg/dL (7-17); Calcium 9.5 mg/dL (8.4-10.2); Carbon Dioxide 28 mmol/L (22-30); Chloride 107 mmol/L (98-107); Glucose 96 mg/dL (74-99); Magnesium 2.1 mg/dL (1.6-2.3); Non-African American GFR(CKD) >90 (>60 ml/min/1.73 sqM); Potassium 3.7 mmol/L (3.5-5.1); Sodium 140 mmol/L (137-145); Total Protein 7.4 g/dL (6.3-8.2)
[2020-11-15 00:19] LABS: ALT 53 U/L (4-34); AST 38 U/L (14-36); Albumin 4.3 g/dL (3.5-5.0); Alkaline Phosphatase 90 U/L (38-126); Total Bilirubin 0.6 mg/dL (0.2-1.3)
--- NOTE | 2020-11-15 00:24 | XR ---
EXAM: XR Chest, 2 Views CLINICAL HISTORY: ITS.REASON XR Reason: Chest Pain TECHNIQUE: Frontal and lateral views of the chest. COMPARISON: Chest x-ray 02/23/2018 FINDINGS: Lungs: No consolidation. Pleural space: Unremarkable. No pneumothorax. Heart: No cardiomegaly. Mediastinum: Unremarkable. Bones/joints: No acute osseous abnormality. IMPRESSION: No acute disease.
[2020-11-15 00:25] LABS: INR 0.9 (<1.2); Partial Thromboplastin Time 22.9 sec (22.0-30.0); Prothrombin Time 9.4 sec (9.0-12.0)
[2020-11-15] MEDS ORDERED: NITROGLYCERIN OINT 1 INCH/GM PACKET TOPICAL STA (00:48)
[2020-11-15] MEDS ORDERED: NITROGLYCERIN SL TABS 0.4 MG TAB SUBLINGUAL PRN (00:48)
--- NOTE | 2020-11-15 01:05 | ED ---
Chest Pain HPI - General Source: patient, family Mode of arrival: ambulatory Limitations: no limitations <Florence Beatty - Last Filed: 11/15/20 01:35> <Leonardo Castellon - Last Filed: 11/16/20 08:29> - General Chief Complaint: Chest Pain Stated Complaint: Chest Pain Time Seen by Provider: 11/14/20 23:50 - History of Present Illness Initial Comments: 50-year-old female with brief previous smoking history, family history of coronary artery disease presenting today for chief complaint of chest discomfort. Patient states approximately 2 hours prior to arrival she had chest pressure. She states it is left-sided subacute sternal area. Patient denies any jaw or arm pain and upper abdominal pain nausea vomiting. Patient denies. Deep inspiration leg swelling sharp pains. Patient denies any fevers or upper respiratory symptoms. Patient denies any significant shortness of breath or shortness of breath with exertion. She denies any calf pain swelling recent surgical procedures history of cancer. Patient denies any personal history of coronary artery disease. She states she had borderline elevated lipid panel in the past. Javi has no additional complaints and is pain free on arrival. (Florence Beatty) - Related Data Home Medications Medication Instructions Recorded Confirmed Cetirizine HCl [Zyrtec] 10 mg PO DAILY 10/30/20 11/15/20 Esomeprazole Magnesium [NexIUM] 20 mg PO DAILY 10/30/20 11/15/20 Budesonide/Formoterol Fumarate 2 puff INHALATION RT-BID PRN 11/15/20 11/15/20 [Symbicort 160-4.5 Mcg Inhaler] Allergies Allergy/AdvReac Type Severity Reaction Status Date / Time azithromycin Allergy Unknown Verified 11/15/20 06:26 Iodinated Contrast Media Allergy Rash/Hives Verified 11/15/20 13:37 iodine Allergy Rash/Hives/ Verified 11/15/20 06:26 Vomiting Penicillins Allergy Rash/Hives Verified 11/15/20 06:26 povidone-iodine AdvReac Rash/Hives Verified 11/15/20 06:26 [From Betadine] soap [From Betadine] AdvReac Rash/Hives Verified 11/15/20 06:26 Review of Systems ROS Other: All systems not noted in ROS Statement are negative. <Florence Beatty - Last Filed: 11/15/20 01:35> ROS Other: All systems not noted in ROS Statement are negative. <Leonardo Castellon - Last Filed: 11/16/20 08:29> ROS Statement: Those systems with pertinent positive or pertinent negative responses have been documented in the HPI. EKG Findings - EKG Comments: EKG Findings:: Ventricular rate 94 bpm, TN interval 144 ms, QRS duration 90 ms, QT/QTC 366/457. No ST elevation or depression is appreciated. Patient had another episode of chest discomfort repeat EKG reveals ventricular rate of 88 bpm, TN interval 150 ms, QRS duration 88 ms, QT/QTC 370/447 ms. This is normal sinus with no ST elevation or depression appreciated. Nonspecific T-wave inversion <RogerioFlorence L - Last Filed: 11/15/20 01:35> Past Medical History Past Medical History: GERD/Reflux, Liver Disease Additional Past Medical History / Comment(s): Sarcoidosis, Neurosarcoidosis, Premature Ovarian Failure had Menopause at age 42, fatty liver, chronic hives since 02/13. Chronic Hives History of Any Multi-Drug Resistant Organisms: None Reported Past Surgical History: Orthopedic Surgery Additional Past Surgical History / Comment(s): Plantar Fascitis-bilateral feet. LAPAROSCOPY FOR ENDOMETRIOSIS Past Anesthesia/Blood Transfusion Reactions: Motion Sickness Past Psychological History: No Psychological Hx Reported Smoking Status: Former smoker Past Alcohol Use History: Occasional Past Drug Use History: None Reported - Past Family History Father Family Medical History: Cancer Additional Family Medical History / Comment(s): PROSTATE CANCER. Mother Family Medical History: Cancer Additional Family Medical History / Comment(s): SKIN CANCER. <RogerioFlorence L - Last Filed: 11/15/20 01:35> General Exam Limitations: no limitations <Elizabeth Beattyramila Velez - Last Filed: 11/15/20 01:35> - General Exam Comments Initial Comments: General: The patient is awake and alert, in no distress, and does not appear acutely ill. Eye: +3 mm pupils are equal, round and reactive to light, extra-ocular movements are intact. No nystagmus. There is normal conjunctiva bilaterally. No signs of icterus. Ears, nose, mouth and throat: There are moist mucous membranes and no oral lesions. Neck: The neck is supple, there is no tenderness or JVD. Cardiovascular: There is a regular rate and rhythm. No murmur, rub or gallop is appreciated. Respiratory: Lungs are clear to auscultation, respirations are non-labored, breath sounds are equal. No wheezes, stridor, rales, or rhonchi. Gastrointestinal: Soft, non-distended, non-tender abdomen without masses or organomegaly noted. There is no rebound or guarding present. Musculoskeletal: Normal ROM, no tenderness. Strength 5/5. Sensation intact. Radial and DP pulses equal bilaterally 2+. Neurological: A&O x 3. CN II-XII intact grossly, There are no obvious motor or sensory deficits. Coordination appears grossly intact. Speech is normal. Skin: Skin is warm and dry and no rashes or lesions are noted. No LE edema. no calf pain Psychiatric: Cooperative, appropriate mood & affect, normal judgment. (Florence Beatty) Course Vital Signs 11/14/20 11/14/20 11/15/20 23:43 23:45 00:26 Temperature 98.7 F Pulse Rate 100 93 Respiratory 20 18 18 Rate Blood Pressure 161/87 140/85 O2 Sat by Pulse 100 97 Oximetry 11/15/20 11/15/20 11/15/20 01:40 02:35 03:58 Temperature 98.2 F Pulse Rate 80 83 87 Respiratory 19 19 18 Rate Blood Pressure 103/54 127/69 138/70 O2 Sat by Pulse 98 98 98 Oximetry Chest Pain MDM <Florence Beatty - Last Filed: 11/15/20 01:35> <Leonardo Castellon - Last Filed: 11/16/20 08:29> - MDM Initial troponin (-). initially chest pain free on arrival. pain came back briefly patient refused nitroglycerin x 2. patient cxr clear. pt currently pain free. EKG no ST changed. nonspecific t wave inversion. pt will be admitted for chest pain r/o. patient agreeable to care plan. dr castellon agreeable to care plan (Florence Beatty) I saw this patient in conjunction with the physician training program assistant. I performed independent history and physical exam. Agree with case management. (Leonardo Castellon) Disposition Is patient prescribed a controlled substance at d/c from ED?: No Time of Disposition: 01:37 Decision to Admit Reason: Admit from EC Decision Date: 11/15/20 Decision Time: 01:37 <Florence Beatty - Last Filed: 11/15/20 01:35> <Leonardo Castellon - Last Filed: 11/16/20 08:29> Clinical Impression: Chest pressure Disposition: ADMITTED IP TO THIS HOSP Condition: Stable
[2020-11-15] MEDS ORDERED: MAG HYDROX/AL HYDROX/SIMETH 30 ML, HYOSCYAMINE ELIXIR 10 ML, LIDOCAINE VISCOUS 2% 10 ML PO STA ×3 (02:44)
[2020-11-15 05:32] VITALS: RESP 16
[2020-11-15 08:19] VITALS: BP 137/81; PULSE 93; TEMP 97.6
[2020-11-15] MEDS ORDERED: SYMBICORT 160-4.5 MCG INHALER INHALATION PRN (09:36)
--- NOTE | 2020-11-15 10:21 | P.DS ---
Providers Date of admission: 11/15/20 03:02 Attending physician: Blanca Vines Consults: 11/15/20 00:48 Consult Physician Urgent Consulting Provider: Ronny Carballo Consult Reason/Comments: chest pain r/o Do you want consulting provider notified?: Yes, Notify in am Primary care physician: Sarah Reyes [facility] Course: As mentioned in HPI Patient Condition at Discharge: Stable Plan - Discharge Summary Discharge Rx Participant: No New Discharge Prescriptions: No Action Esomeprazole Magnesium [NexIUM] 20 mg PO DAILY Cetirizine HCl [Zyrtec] 10 mg PO DAILY Budesonide/Formoterol Fumarate [Symbicort 160-4.5 Mcg Inhaler] 2 puff INHALATION RT-BID PRN PRN Reason: Shortness Of Breath Discharge Medication List Cetirizine HCl [Zyrtec] 10 mg PO DAILY 10/30/20 [History] Esomeprazole Magnesium [NexIUM] 20 mg PO DAILY 10/30/20 [History] Budesonide/Formoterol Fumarate [Symbicort 160-4.5 Mcg Inhaler] 2 puff INHALATION RT-BID PRN 11/15/20 [History] Follow up Appointment(s)/Referral(s): Sarah Reyes MD [Primary Care Provider] - 3 Days Discharge Disposition: HOME SELF-CARE
--- NOTE | 2020-11-15 10:21 | P.HPIM ---
History of Present Illness 50-year-old pleasant female came in with complaints of epigastric abdominal discomfort which started yesterday evening. Patient does have history of gastritis and peptic acid disease in the past patient pain is a sharp in nature 10/10 in severity there is some radiation to the substernal area and retrosternal area along with some radiation to the left side of the chest is fairly felt like there is a bubble in the epigastric area. Patient pain lasted for a few hours patient denied any shortness of breath, diaphoresis associated with that. Patient denied any lightheadedness. Patient denied any nausea associated chest pain. Patient pain is not associated with food nonpleuritic. Patient is already on Nexium 20 mg daily at home. EKG showed sinus rhythm without any acute ST-T wave changes troponins were negative patient had a stress test more than 10 years ago which was within normal limits patient does have family history of premature coronary disease and myocardial infarction in her father at age 56. Review of Systems REVIEW OF SYSTEMS: CONSTITUTIONAL: No fever, no malaise, no fatigue. HEENT: No recent visual problems or hearing problems. Denied any sore throat. CARDIOVASCULAR: No orthopnea, PND, no palpitations, no syncope. PULMONARY: No shortness of breath, no cough, no hemoptysis. GASTROINTESTINAL: No diarrhea, no nausea, no vomiting, no abdominal pain. NEUROLOGICAL: No headaches, no weakness, no numbness. HEMATOLOGICAL: Denies any bleeding or petechiae. GENITOURINARY: Denies any burning micturition, frequency, or urgency. MUSCULOSKELETAL/RHEUMATOLOGICAL: Denies any joint pain, swelling, or any muscle pain. ENDOCRINE: Denies any polyuria or polydipsia. The rest of the 14-point review of systems is negative. 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 Chronic Hives History of Any Multi-Drug Resistant Organisms: None Reported Past Surgical History: Orthopedic Surgery Additional Past Surgical History / Comment(s): Plantar Fascitis-bilateral feet. LAPAROSCOPY FOR ENDOMETRIOSIS Past Anesthesia/Blood Transfusion Reactions: Motion Sickness Past Psychological History: No Psychological Hx Reported Smoking Status: Former smoker Past Alcohol Use History: Occasional Additional Past Alcohol Use History / Comment(s): Quit smoking in 2000. Past Drug Use History: None Reported - Past Family History Father Family Medical History: Cancer Additional Family Medical History / Comment(s): PROSTATE CANCER. Mother Family Medical History: Cancer Additional Family Medical History / Comment(s): SKIN CANCER. Medications and Allergies Home Medications Medication Instructions Recorded Confirmed Type Cetirizine HCl [Zyrtec] 10 mg PO DAILY 10/30/20 11/15/20 History Esomeprazole Magnesium [NexIUM] 20 mg PO DAILY 10/30/20 11/15/20 History Budesonide/Formoterol Fumarate 2 puff INHALATION RT-BID PRN 11/15/20 11/15/20 History [Symbicort 160-4.5 Mcg Inhaler] Allergies Allergy/AdvReac Type Severity Reaction Status Date / Time azithromycin Allergy Unknown Verified 11/15/20 06:26 iodine Allergy Rash/Hives/ Verified 11/15/20 06:26 Vomiting Penicillins Allergy Rash/Hives Verified 11/15/20 06:26 povidone-iodine AdvReac Rash/Hives Verified 11/15/20 06:26 [From Betadine] soap [From Betadine] AdvReac Rash/Hives Verified 11/15/20 06:26 Physical Exam Vitals: Vital Signs Temp Pulse Pulse Resp BP BP Pulse Ox 11/15/20 08:20 93 16 11/15/20 07:22 97.6 F 93 16 137/81 96 11/15/20 04:30 78 16 11/15/20 04:04 98.2 F 78 16 134/86 96 11/15/20 03:58 98.2 F 87 18 138/70 98 11/15/20 02:35 83 19 127/69 98 11/15/20 01:40 80 19 103/54 98 11/15/20 00:26 93 18 140/85 97 11/14/20 23:45 18 11/14/20 23:43 98.7 F 100 20 161/87 100 Intake and Output 11/14/20 11/15/20 11/15/20 22:59 06:59 14:59 Other: Voiding Method Toilet Toilet # Voids 1 1 Weight 102.058 kg PHYSICAL EXAMINATION: GENERAL: The patient is alert and oriented x3, not in any acute distress. Well developed, well nourished. HEENT: Pupils are round and equally reacting to light. EOMI. No scleral icterus. No conjunctival pallor. Normocephalic, atraumatic. No pharyngeal erythema. No thyromegaly. CARDIOVASCULAR: S1 and S2 present. No murmurs, rubs, or gallops. PULMONARY: Chest is clear to auscultation, no wheezing or crackles. ABDOMEN: Soft, nontender, nondistended, normoactive bowel sounds. No palpable organomegaly. MUSCULOSKELETAL: No joint swelling or deformity. EXTREMITIES: No cyanosis, clubbing, or pedal edema. NEUROLOGICAL: Gross neurological examination did not reveal any focal deficits. SKIN: No rashes. Results CBC & Chem 7: 11/15/20 00:02 11/15/20 00:02 Labs: Abnormal Lab Results - Last 24 Hours (Table) 11/15/20 Range/Units 00:02 AST 38 H (14-36) U/L ALT 53 H (4-34) U/L Thrombosis Risk Factor Assmnt - Choose All That Apply Each Factor Represents 1 point: Age 41-60 years, Obesity (BMI >25) Thrombosis Risk Factor Assessment Total Risk Factor Score: 2 Thrombosis Risk Factor Assessment Level: Low Risk Assessment and Plan Plan: -Chest pain: Ruled out acute coronary syndromes patient has atypical chest pain if cleared by cardiology patient will be discharged today. I still believe patient may have esophagitis that is convenient and symptoms although patient had a recent EGD asked her to continue with Esmarch was old but twice a day for 14 days and see if there is any improvement. Patient is also taking prednisone that maybe affecting her esophagus and stomach -Gastroesophageal reflux disease -History of asthma without any acute exacerbation
--- NOTE | 2020-11-15 11:56 | P.CRDCN ---
History of Present Illness Consult date: 11/15/20 Consult reason: chest pain History of present illness: The patient is a 50-year-old female with past medical history of acid reflux and sarcoidosis, who presented to the hospital with worsening chest discomfort. She states she had been experiencing this over the last several weeks and she attributed to acid reflux. Yesterday she states the pain became so severe she felt the need to come in for further evaluation. She states this typically starts in the epigastric area as a pressure sensation and gradually becomes midsternal and sharp. She states her pain often is worse in the evening hours and may be associated to eating. She states it is not worsened with exertion or physical activity. She has not had any associated shortness of breath, nausea, vomiting, or diaphoresis. She states her sarcoidosis has been well managed currently with intermittent use of steroids and CBD oil for pain. The patient states she does have a family history of coronary artery disease, with her father requiring bypass surgery. DIAGNOSTICS: Chest x-ray shows no acute cardiopulmonary process EKG shows sinus mechanism without ST or T-wave changes Laboratory data shows WBC 7.4, hemoglobin 14.3, hematocrit 41.8, platelet 248, sodium 140, potassium 3.7, BUN 16, creatinine 0.70, magnesium 2.1, AST 38, ALT 53, troponin negative 3, BNP 30 Previous EGD showed mild gastritis. No hiatal hernia or ulcerations noted. PAST MEDICAL HISTORY: Sarcoidosis, acid reflux REVIEW OF SYSTEMS: No fever or chills. No cough or expectoration. No diaphoresis. Patient denies headache, dizziness, blurred vision, double vision. Patient denies any stomach discomfort. No nausea, vomiting. No hematochezia. No hematemesis. Denies any black stools or blood in his stools. Denies dysuria or hematuria. No muscle weakness or numbness. PHYSICAL EXAMINATION: This is a 50-year-old female in no apparent distress at the time of my examination. HEENT: Head is atraumatic, normocephalic. Pupils are equal, round. Sclerae anicteric. Conjunctivae are clear. Mucous membranes of the mouth are moist. Neck is supple. There is no jugular venous distention. No carotid bruit is heard. CHEST EXAMINATION: Lungs are clear to auscultation. No chest wall tenderness is noted on palpation or with deep breathing. HEART EXAMINATION: Heart regular rate and rhythm. S1, S2 heard. No murmurs, gallops or rub. ABDOMEN: Soft, nontender. Bowel sounds are heard. No organomegaly noted. EXTREMITIES: 2+ peripheral pulses with no evidence of peripheral edema and no calf tenderness noted. NEUROLOGIC EXAMINATION: Patient is awake, alert and oriented x3. FINAL ASSESSMENT AND PLAN: #1 chest discomfort, atypical, ACS ruled out #2 history of sarcoidosis #3 history of acid reflux, recent EGD with mild gastritis PLAN: We will order a d-dimer Schedule the patient for outpatient stress echocardiogram to assess for coronary artery disease If d-dimer is within normal limits patient may to be discharged and will follow- up in office thereafter for further evaluation if needed Past Medical History Past Medical History: GERD/Reflux, Liver Disease Additional Past Medical History / Comment(s): Sarcoidosis, Neurosarcoidosis, Premature Ovarian Failure had Menopause at age 42, fatty liver, chronic hives since 02/13. Chronic Hives History of Any Multi-Drug Resistant Organisms: None Reported Past Surgical History: Orthopedic Surgery Additional Past Surgical History / Comment(s): Plantar Fascitis-bilateral feet. LAPAROSCOPY FOR ENDOMETRIOSIS Past Anesthesia/Blood Transfusion Reactions: Motion Sickness Past Psychological History: No Psychological Hx Reported Smoking Status: Former smoker Past Alcohol Use History: Occasional Additional Past Alcohol Use History / Comment(s): Quit smoking in 2000. Past Drug Use History: None Reported - Past Family History Father Family Medical History: Cancer Additional Family Medical History / Comment(s): PROSTATE CANCER. Mother Family Medical History: Cancer Additional Family Medical History / Comment(s): SKIN CANCER. Medications and Allergies Home Medications Medication Instructions Recorded Confirmed Type Cetirizine HCl [Zyrtec] 10 mg PO DAILY 10/30/20 11/15/20 History Esomeprazole Magnesium [NexIUM] 20 mg PO DAILY 10/30/20 11/15/20 History Budesonide/Formoterol Fumarate 2 puff INHALATION RT-BID PRN 11/15/20 11/15/20 History [Symbicort 160-4.5 Mcg Inhaler] Allergies Allergy/AdvReac Type Severity Reaction Status Date / Time azithromycin Allergy Unknown Verified 11/15/20 06:26 iodine Allergy Rash/Hives/ Verified 11/15/20 06:26 Vomiting Penicillins Allergy Rash/Hives Verified 11/15/20 06:26 povidone-iodine AdvReac Rash/Hives Verified 11/15/20 06:26 [From Betadine] soap [From Betadine] AdvReac Rash/Hives Verified 11/15/20 06:26 Physical Exam Vitals: Vital Signs Temp Pulse Pulse Resp BP BP Pulse Ox 11/15/20 08:20 93 16 11/15/20 07:22 97.6 F 93 16 137/81 96 11/15/20 04:30 78 16 11/15/20 04:04 98.2 F 78 16 134/86 96 11/15/20 03:58 98.2 F 87 18 138/70 98 11/15/20 02:35 83 19 127/69 98 11/15/20 01:40 80 19 103/54 98 11/15/20 00:26 93 18 140/85 97 11/14/20 23:45 18 11/14/20 23:43 98.7 F 100 20 161/87 100 Intake and Output 11/14/20 11/15/20 11/15/20 22:59 06:59 14:59 Other: Voiding Method Toilet Toilet # Voids 1 1 Weight 102.058 kg Results 11/15/20 00:02 11/15/20 00:02 Cardiac Enzymes 11/15/20 11/15/20 11/15/20 Range/Units 00:02 00:02 02:27 AST 38 H (14-36) U/L Troponin I <0.012 <0.012 (0.000-0.034) ng/mL 11/15/20 Range/Units 05:49 AST (14-36) U/L Troponin I <0.012 (0.000-0.034) ng/mL Coagulation 11/15/20 Range/Units 00:02 PT 9.4 (9.0-12.0) sec APTT 22.9 (22.0-30.0) sec CBC 11/15/20 Range/Units 00:02 WBC 7.4 (3.8-10.6) k/uL RBC 4.78 (3.80-5.40) m/uL Hgb 14.3 (11.4-16.0) gm/dL Hct 41.8 (34.0-46.0) % Plt Count 248 (150-450) k/uL Comprehensive Metabolic Panel 11/15/20 Range/Units 00:02 Sodium 140 (137-145) mmol/L Potassium 3.7 (3.5-5.1) mmol/L Chloride 107 (98-107) mmol/L Carbon Dioxide 28 (22-30) mmol/L BUN 16 (7-17) mg/dL Creatinine 0.70 (0.52-1.04) mg/dL Glucose 96 (74-99) mg/dL Calcium 9.5 (8.4-10.2) mg/dL AST 38 H (14-36) U/L ALT 53 H (4-34) U/L Alkaline Phosphatase 90 (38-126) U/L Total Protein 7.4 (6.3-8.2) g/dL Albumin 4.3 (3.5-5.0) g/dL Current Medications Generic Name Dose Route Start Last Admin Trade Name Freq PRN Reason Stop Dose Admin Aspirin 325 mg 11/16/20 09:00 Aspirin 325 Mg Tab PO DAILY AYAKA Budesonide/Formoterol Fumarate 2 puff 11/15/20 09:36 Symbicort 160-4.5 Mcg Inhaler INHALATION RT-BID PRN Shortness Of Breath Loratadine 10 mg 11/16/20 09:00 Loratadine 10 Mg Tab PO DAILY AYAKA Nitroglycerin 0.4 mg 11/15/20 00:48 Nitroglycerin Sl Tabs 0.4 Mg Tab SUBLINGUAL Q5M PRN Chest Pain Pantoprazole Sodium 40 mg 11/16/20 07:30 Pantoprazole 40 Mg Tablet PO AC-BRKFST AYAKA Intake and Output 11/14/20 11/15/20 11/15/20 22:59 06:59 14:59 Other: Voiding Method Toilet Toilet # Voids 1 1 Weight 102.058 kg 11/15/20 00:02 11/15/20 00:02
[2020-11-15 13:27] LABS: T4, Free (Free Thyroxine) 0.89 ng/dL (0.78-2.19)
[2020-11-15] MEDS ORDERED: diphenhydrAMINE 50 MG/ML 1 ML VIAL IVP ONE (14:31)
[2020-11-15] MEDS ORDERED: methylPREDNISolone SOD SUCCI 125 MG/2 ML VIAL IV ONE (14:31)
[2020-11-15] MEDS ORDERED: FAMOTIDINE 20 MG/2 ML VIAL IV ONE (14:31)
[2020-11-15] MEDS ORDERED: diphenhydrAMINE 50 MG/ML 1 ML VIAL IVP STA (14:38)
[2020-11-15] MEDS ORDERED: FAMOTIDINE 20 MG/2 ML VIAL IV STA (14:38)
[2020-11-15] MEDS ORDERED: methylPREDNISolone SOD SUCCI 125 MG/2 ML VIAL IV STA (14:38)
--- NOTE | 2020-11-15 16:24 | CT ---
EXAMINATION TYPE: CT chest angio for PE DATE OF EXAM: 11/15/2020 COMPARISON: 02/14/2020 HISTORY: Positive d-dimer, chest pain. Hx sarcoidosis CT DLP: 689.2 mGycm Automated exposure control for dose reduction was used. CONTRAST: Performed with IV Contrast, patient injected with 100 mL of Isovue 370. There are 3-D post processed images. There is some fatty infiltration of the liver. There is no pleural effusion. The lungs are clear of c onsolidation. There is no evidence of a pulmonary mass. There is no mediastinal adenopathy. There are no hilar masses. There is normal contrast opacification of the pulmonary arteries. There are no filling defects. Thora cic aorta is intact. There is no aneurysm or dissection. Bony thorax is intact. IMPRESSION: No evidence of pulmonary embolism. No evidence of thoracic sarcoidosis. No adverse change compared to old exam. Fatty infiltration of the liver unchanged.
[2020-11-16] MEDS ORDERED: PANTOPRAZOLE 40 MG TABLET PO SCH (07:30)
[2020-11-16] MEDS ORDERED: ASPIRIN 325 MG TAB PO SCH (09:00)
[2020-11-16] MEDS ORDERED: LORATADINE 10 MG TAB PO SCH (09:00)
== END 2020-11-15 17:25 | disposition home or self-care (01) ==
LOC: EC 23:41 → 1SOBS 11-15 03:02
PROVIDERS: ADMIT Hospitalist; ATTEND Hospitalist
DX: R07.9 Chest pain, unspecified (principal); D86.9 Sarcoidosis, unspecified; K21.9 Gastro-esophageal reflux disease without esophagitis; Z82.49 Family history of ischemic heart disease and other diseases of the circulatory system; K76.0 Fatty (change of) liver, not elsewhere classified; E28.319 Asymptomatic premature menopause; L50.8 Other urticaria; Z98.890 Other specified postprocedural states; Z87.891 Personal history of nicotine dependence; Z80.42 Family history of malignant neoplasm of prostate; Z80.8 Family history of malignant neoplasm of other organs or systems; Z79.51 Long term (current) use of inhaled steroids; Z79.899 Other long term (current) drug therapy; Z88.1 Allergy status to other antibiotic agents; Z88.0 Allergy status to penicillin; Z91.048 Other nonmedicinal substance allergy status
CPT/HCPCS: 93005 ×3; 96374; 96375; 99285; 36415; 85379; 84439; 83880; 80061; 80053; 84443; 83735; 84484; 85025; 85610; 85730; 71046; 71275; G0378; J1200; J2930; Q9967

== ENCOUNTER → 2020-11-23 | Outpatient (CLI) | payer MEDICAID ==
[~2020-11-23] MED LIST changes: +DOBUTamine DRIP for NUC MED 500 MG in DEXTROSE/WATER 1 250ML.BAG IV ONE; -LACTATED RINGERS 1,000 ML IV SCH; -LIDOCAINE 1% (10MG/ML) FOR IV START INTRADERMA PRN
--- NOTE | 2020-11-23 13:30 | P.STRESS ---
- Stress Test Note Stress Test Results/Findings: Exam Performed: dobutamine stress echo with con Exam Date: 11/23/20 Reason for Exam: CP Height: 5 ft 6 in Weight: 100 kg Protocol: DOBUTAMINE STRESS ECHO WITH LUMASON Stage: 4 Duration of Exercise: 10:20 Resting Heart Rate: 83 Resting Blood Pressure: 137/77 Maximum Achieved Heart Rate: 123 Maximum Achieved Blood Pressure: 177/73 85% PMHR: 145 100% PMHR: 170 METS: NA Technologist Comment: Stress Test Results/Findings: Baseline heart rate 83 beats a minute, Baseline blood pressure 137/77 mmHg Baseline twelve-lead EKG shows sinus rhythm with normal ST segments normal QRS normal MN interval Patient received dobutamine infusion per protocol Peak heart rate 123 beats a minute normal blood pressure response There is no ECG ms for ischemia At peak dobutamine infusion there was slowing of heart rate with development of slow ventricular tachycardia with a left bundle branch block type, superior axis. Runs of nonsustained ventricular tachycardia, slow were noted. Patient felt a little bit of pounding and this subsided with recovery from dobutamine Recent 2-D echo images were suboptimal the foot Definity contrast was used There was excellent mentation overall LV contractility with without development of any wall motion amenities @Recovery region global LV systolic function within normal Impression no ECG or echocardiographic ms of ischemia At peak dobutamine infusion runs of slow nonsustained VT with a left bundle branch block morphology, superior axis
--- NOTE | 2020-11-24 11:39 | ECHOS ---
Stress Test Results/Findings: Exam Performed: dobutamine stress echo with con Exam Date: 11/23/20 Reason for Exam: CP Height: 5 ft 6 in Weight: 100 kg Protocol: DOBUTAMINE STRESS ECHO WITH LUMASON Stage: 4 Duration of Exercise: 10:20 Resting Heart Rate: 83 Resting Blood Pressure: 137/77 Maximum Achieved Heart Rate: 123 Maximum Achieved Blood Pressure: 177/73 85% PMHR: 145 100% PMHR: 170 METS: NA Technologist Comment: Stress Test Results/Findings: Baseline heart rate 83 beats a minute, Baseline blood pressure 137/77 mmHg Baseline twelve-lead EKG shows sinus rhythm with normal ST segments normal QRS normal NC interval Patient received dobutamine infusion per protocol Peak heart rate 123 beats a minute normal blood pressure response There is no ECG ms for ischemia At peak dobutamine infusion there was slowing of heart rate with development of slow ventricular tachycardia with a left bundle branch block type, superior axis. Runs of nonsustained ventricular tachycardia, slow were noted. Patient felt a little bit of pounding and this subsided with recovery from dobutamine Recent 2-D echo images were suboptimal the foot Definity contrast was used There was excellent mentation overall LV contractility with without development of any wall motion amenities @Recovery region global LV systolic function within normal Impression no ECG or echocardiographic ms of ischemia At peak dobutamine infusion runs of slow nonsustained VT with a left bundle branch block morphology, superior axis MTDD
== END | disposition home or self-care (01) ==
LOC: RADNMMAIN 09:01
PROVIDERS: ATTEND Internal Medicine Clinical Cardiac Electrophysiology
DX: I47.2 Ventricular tachycardia (principal); I44.7 Left bundle-branch block, unspecified; D86.9 Sarcoidosis, unspecified
CPT/HCPCS: 93351; J1250; Q9950

== ENCOUNTER → 2020-12-16 | Outpatient (CLI) | payer MEDICAID ==
[2020-12-16 09:00] LABS: T4, Free (Free Thyroxine) 1.04 ng/dL (0.78-2.19)
== END | disposition home or self-care (01) ==
LOC: RADXRMAIN 07:45
PROVIDERS: ATTEND Physician Assistant Medical
DX: E03.9 Hypothyroidism, unspecified (principal); D86.89 Sarcoidosis of other sites
CPT/HCPCS: 82164; 84439; 84443; 84480

== ENCOUNTER → 2021-02-12 | Outpatient (CLI) | payer MEDICAID ==
[2021-02-13 00:44] LABS: Protein, Total 6.3 g/dL (6.2-8.2)
[2021-02-15 13:30] LABS: Albumin 3.91 g/dL (3.80-4.90); Gamma Globulin 0.76 g/dL (0.70-1.50)
== END | disposition home or self-care (01) ==
LOC: LABWHC1 14:46
PROVIDERS: ATTEND Specialist
DX: L50.1 Idiopathic urticaria (principal)
CPT/HCPCS: 36415; 84165; 84439; 84443; 84481

== ENCOUNTER → 2021-02-16 | Outpatient (CLI) | payer MEDICAID | END | disposition home or self-care (01) | LOC: LABWHC1 14:04 | PROVIDERS: ATTEND Specialist | DX: L50.1 Idiopathic urticaria (principal) | CPT/HCPCS: 36415; 86355; 86357; 86359; 86360 ==

== ENCOUNTER → 2021-02-24 | Outpatient (CLI) | payer MEDICAID ==
--- NOTE | 2021-02-24 15:27 | BD ---
EXAMINATION TYPE: Axial Bone Density DATE OF EXAM: 02/24/2021 COMPARISON: NONE CLINICAL HISTORY: Height: 5 FT 6 IN Weight: 238 FRAX RISK QUESTIONS: Alcohol (3 or more units per day): NO Family History (Parent hip fracture): NO Glucocorticoids (More than 3mos): YES (Ex: prednisone, prednisolone, methylprednisolone, dexamethasone, and hydrocortisone). History of Fracture in Adulthood: YES Secondary Osteoporosis: 1. Type 1 Diabetes: NO 2. Hyperthyroidism: NO 3. Menopause before 45: YES 4. Malnutrition: NO 5. Chronic liver disease: FATTY Rheumatoid Arthritis: NO Current Tobacco Use: NO RISK FACTORS HISTORY OF: Surgery to Spine/Hip(right/left)/Wrist (right/left): LEFT WRIST When: 10 YEARS AGO Family History of Osteoporosis: YES Active: YES Diet low in dairy products/other sources of calcium: NO Postmenopausal woman: AGE 42 Take estrogen and/or progesterone medications: NONE Lost more than 2 inches in height since high school: NO MEDICATIONS: Prednisone or other steroids: YES How Lon SOME BREAKS FOR THE LAST 2 YEARS 10-40 MG OF PREDNISONE Thyroid Medications: YES Which medication: LEVOTHYROXINE How Lon MONTHS Additional Medications: LEVOTHYROXINE, NEXIUM, PEPCID, PREDNISONE Additional History: SARCOIDOSIS,IDIOPATHIC HIVES EXAM MEASUREMENTS: Bone mineral densitometry was performed using the [employer] System. Bone mineral density as measured about the Lumbar spine is: ----- L1-L4(G/cm2): 1.019 T Score Values are as follows: ----- L2: -0.8 ----- L3: -1.2 ----- L4: -1.8 ----- L1-L4: -1.3 Bone mineral density has: DECREASED -6.1 % since study of: 2014 Bone mineral density about the R hip (g/cm2): 0.991 Bone mineral density about the L hip (g/cm2): 0.965 T Score values are as follows: -----R Neck: -0.3 -----L Neck: -0.5 -----R Total: 0.5 -----L Total: 0.4 Bone mineral density has: DECREASED -1.9 % since study of: 2014 IMPRESSION: Osteopenia (T Score between -2.5 and -1). There is slightly increased risk of fracture and the patient may be considered for treatment. Re-Screen 2-5 years. NOTE: T-SCORE=SD OF THE YOUNG ADULT MEAN.
== END | disposition home or self-care (01) ==
LOC: RADBDWWP 07:16
PROVIDERS: ATTEND Family Medicine
DX: M85.80 Other specified disorders of bone density and structure, unspecified site (principal)
CPT/HCPCS: 77080

== ENCOUNTER → 2021-03-22 | Outpatient (CLI) | payer MEDICAID ==
[2021-03-22 13:39] LABS: Basophils % (A) 0 %; Eosinophils # (A) 0.2 k/uL (0-0.7); Eosinophils % (A) 3 %; HGB 14.1 gm/dL (11.4-16.0); Lymphocytes # (A) 2.3 k/uL (1.0-4.8); Lymphocytes % (A) 41 %; MCH 29.8 pg (25.0-35.0); MCHC 34.3 g/dL (31.0-37.0); MCV 86.8 fL (80.0-100.0); Mean Platelet Volume 6.6; Monocytes # (A) 0.4 k/uL (0-1.0); Monocytes % (A) 6 %; Neutrophils # (A) 2.6 k/uL (1.3-7.7); Neutrophils % (A) 47 %; Platelet Count 266 k/uL (150-450); RBC 4.72 m/uL (3.80-5.40); RDW 13.3 % (11.5-15.5); WBC 5.5 k/uL (3.8-10.6)
[2021-03-22 14:08] LABS: Calcium 9.2 mg/dL (8.4-10.2); Potassium 4.2 mmol/L (3.5-5.1); Total Bilirubin 1.1 mg/dL (0.2-1.3); Total Protein 6.8 g/dL (6.3-8.2)
== END | disposition home or self-care (01) ==
LOC: RADXRMAIN 13:13
PROVIDERS: ATTEND Specialist
DX: Z51.81 Encounter for therapeutic drug level monitoring (principal)
CPT/HCPCS: 80053; 85025

== ENCOUNTER → 2021-05-12 | Outpatient (CLI) | payer MEDICAID ==
--- NOTE | 2021-05-14 10:34 | MM ---
Reason for exam: screening (asymptomatic). Last mammogram was performed 3 years and 1 month ago. History: Patient is postmenopausal and had first child at age 38. Family history of breast cancer in 2 paternal aunts. Physical Findings: A clinical breast exam by your physician is recommended on an annual basis and results should be correlated with mammographic findings. MG 3D Screening Mammo W/Cad Bilateral CC, MLO, and XCCL view(s) were taken. Prior study comparison: April 25, 2018, bilateral MG 3d screening mammo w/cad. There are scattered fibroglandular densities. No significant changes when compared with prior studies. ASSESSMENT: Negative, BI-RAD 1 RECOMMENDATION: Routine screening mammogram of both breasts in 1 year.
== END | disposition home or self-care (01) ==
LOC: RADMAMWWP 12:05
PROVIDERS: ATTEND Family Medicine
DX: Z12.31 Encounter for screening mammogram for malignant neoplasm of breast (principal)
CPT/HCPCS: 77063; 77067

== ENCOUNTER → 2021-06-25 | Outpatient (CLI) | payer MEDICAID ==
[2021-06-26 08:08] LABS: Clam IgE <0.10 kU/L; Scallop IgE <0.10 kU/L; Shrimp IgE <0.10 kU/L; Walnut IgE (Food) <0.10 kU/L
[2021-06-26 08:09] LABS: Peanut IgE <0.10 kU/L; Soybean IgE <0.10 kU/L
[2021-06-26 08:10] LABS: Codfish IgE <0.10 kU/L; Egg White IgE <0.10 kU/L
[2021-06-26 08:23] LABS: Immunoglobulin E 3.94 IU/mL (0.00-114.00)
[2021-06-28 10:57] LABS: Hazelnut IgE <0.10 kU/L (<0.10); Hazelnut IgE Class CLASS 0; Pecan IgE <0.10 kU/L (<0.10); Pecan IgE Class CLASS 0
[2021-06-28 10:57] LABS: Almond IgE <0.10 kU/L (<0.10); Almond IgE Class CLASS 0; Brazil Nut IgE <0.10 kU/L (<0.10); Brazil Nut IgE Class CLASS 0
[2021-06-28 10:58] LABS: Pistachio IgE Class CLASS 0; Sweet Chestnut IgE <0.10 kU/L (<0.10); Sweet Chestnut IgE Class CLASS 0
[2021-06-28 10:58] LABS: Cashew IgE <0.10 kU/L (<0.10); Cashew IgE Class CLASS 0; Crab IgE <0.10 kU/L (<0.10); Crab IgE Class CLASS 0
[2021-06-28 10:59] LABS: Lobster IgE <0.10 kU/L (<0.10); Lobster IgE Class CLASS 0
[2021-06-28 10:59] LABS: Macadamia Nut IgE <0.10 kU/L (<0.10); Macadamia Nut IgE Class CLASS 0; Pine Nut, Pignoles IgE <0.10 kU/L (<0.10); Pine Nut, Pignoles IgE Class CLASS 0
[2021-06-28 11:56] LABS: Rye (Food) IgE <0.10 kU/L (<0.10); Rye (Food) IgE Class CLASS 0
[2021-06-28 11:57] LABS: Barley IgE <0.10 kU/L (<0.10); Barley IgE Class CLASS 0; Oat IgE Class CLASS 0
[2021-06-28 11:58] LABS: Alpha Lactalbumin IgE Class CLASS 0; Egg Yolk IgE Class CLASS 0
[2021-06-28 11:59] LABS: Beta Lactoglobulin IgE Class CLASS 0; Casein IgE Class CLASS 0; Cheddar Cheese IgE <0.10 kU/L (<0.10); Cheddar Cheese IgE Class CLASS 0; Gluten IgE Class CLASS 0; Mold Cheese IgE <0.10 kU/L (<0.10); Mold Cheese IgE Class CLASS 0
== END | disposition home or self-care (01) ==
LOC: LABWHC1 13:58
PROVIDERS: ATTEND Specialist
DX: L50.0 Allergic urticaria (principal)
CPT/HCPCS: 36415; 82785; 86003

== ENCOUNTER → 2021-07-22 | Outpatient (CLI) | payer MEDICAID ==
[2021-07-22 10:56] LABS: Basophils # (A) 0.01 X 10*3/uL (0.00-0.10); Basophils % (A) 0.2 %; Eosinophils % (A) 1.9 %; HCT 39.6 % (37.2-46.3); HGB 12.9 g/dL (12.0-15.0); Lymphocytes # (A) 2.23 X 10*3/uL (0.90-5.00); Lymphocytes % (A) 41.4 %; MCH 29.1 pg (27.0-32.0); MCHC 32.6 g/dL (32.0-37.0); MCV 89.2 fL (80.0-97.0); Mean Platelet Volume 9.2 fL (9.5-12.2); Monocytes # (A) 0.45 X 10*3/uL (0.20-1.00); Monocytes % (A) 8.4 %; Neutrophils # (A) 2.56 X 10*3/uL (1.80-7.70); Neutrophils % (A) 47.5 %; Platelet Count 291 X 10*3/uL (140-440); RBC 4.44 X 10*6/uL (4.10-5.20); RDW 13.7 % (11.5-14.5); WBC 5.38 X 10*3/uL (4.50-10.00)
[2021-07-22 13:03] LABS: African American GFR (CKD) 86.4 (60.0-200.0); Albumin 4.1 g/dL (3.80-4.90); Albumin/Globulin Ratio 1.78 (1.60-3.17); Anion Gap 9.1 mmol/L (4.00-12.00); BUN/Creat Ratio 8.89 Ratio (12.00-20.00); C Reactive Protein 0.8 mg/dL (0.0-0.8); Calcium 8.7 mg/dL (8.7-10.3); Carbon Dioxide 25.9 mmol/L (21.6-31.8); Globulin 2.3 g/dL (1.6-3.3); Non-African American GFR(CKD) 74.6 (60.0-200.0); Potassium 3.8 mmol/L (3.5-5.5); Total Bilirubin 0.6 mg/dL (0.3-1.2); Total Protein 6.4 g/dL (6.2-8.2)
[2021-07-22 13:52] LABS: Erythrocyte Sedimentation Rate 7 mm/Hr (0-20)
[2021-07-22 15:13] LABS: Thyroid Peroxidase Antibodies 39.7 U/mL (0.0-60.0)
== END | disposition home or self-care (01) ==
LOC: LABWHC1 07:21
PROVIDERS: ATTEND Physician Assistant Medical
DX: E03.9 Hypothyroidism, unspecified (principal); H05.223 Edema of bilateral orbit; L50.1 Idiopathic urticaria; R60.0 Localized edema; Z79.52 Long term (current) use of systemic steroids
CPT/HCPCS: 36415; 80053; 82533; 82550; 83615; 83880; 84439; 84443; 84480; 85025; 85652; 86140; 86376

== ENCOUNTER → 2021-11-05 | Outpatient (CLI) | payer MEDICAID ==
--- NOTE | 2021-11-05 12:03 | P.STRESS ---
- Stress Test Note Stress Test Results/Findings: Exam Performed: stress test Exam Date: 11/05/21 Reason for Exam: NSVT Height: 5 ft 6 in Weight: 225 kg Protocol: GUILLERMO Stage: III Duration of Exercise: 7.04 Resting Heart Rate: 96 Resting Blood Pressure: 137/96 Maximum Achieved Heart Rate: 160 Maximum Achieved Blood Pressure: 217/90 85% PMHR: 144 100% PMHR: 169 METS: 4.1 Technologist Comment: Stress Test Results/Findings: Baseline heart rate 96 beats minute, Baseline blood pressure 137/96. His mercury Twelve-lead EKG shows sinus rhythm with nonspecific ST-T abnormalities Patient exercised on a Guillermo protocol for 7 minutes There is no ECG evidence of ischemia No arrhythmias noted no PVCs No nonsustained ventricular tachycardia Impression average exercise capacity No exercise induced arrhythmias
== END | disposition home or self-care (01) ==
LOC: RADNMMAIN 08:28
PROVIDERS: ATTEND Internal Medicine Clinical Cardiac Electrophysiology
DX: I47.2 Ventricular tachycardia (principal)
CPT/HCPCS: 93017

== ENCOUNTER → 2021-12-27 | Outpatient (CLI) | payer MEDICAID ==
[2021-12-27 10:31] LABS: ALT 37 U/L (8-44); AST 26 U/L (13-35); African American GFR (CKD) 98.9 (60.0-200.0); Albumin 4.4 g/dL (3.8-4.9); Albumin/Globulin Ratio 1.69 (1.60-3.17); Alkaline Phosphatase 91 U/L (41-126); Blood Urea Nitrogen 11.6 mg/dL (9.0-27.0); Carbon Dioxide 25.3 mmol/L (20.0-27.5); Chloride 102 mmol/L (96-109); Globulin 2.6 g/dL (1.6-3.3); Glucose 100 mg/dL (70-110); Non-African American GFR(CKD) 85.4 (60.0-200.0); Potassium 3.7 mmol/L (3.5-5.5); Sodium 140 mmol/L (135-145)
== END | disposition home or self-care (01) ==
LOC: LABWHC1 07:01
PROVIDERS: ATTEND Physician Assistant Medical
DX: D86.89 Sarcoidosis of other sites (principal); E03.9 Hypothyroidism, unspecified; E66.9 Obesity, unspecified; L50.1 Idiopathic urticaria; R94.5 Abnormal results of liver function studies
CPT/HCPCS: 36415; 80053; 82164; 84443

== ENCOUNTER → 2022-06-03 | Outpatient (CLI) | payer MEDICAID ==
--- NOTE | 2022-06-03 07:34 | XR ---
EXAMINATION TYPE: XR lumbar spine 2 or 3V DATE OF EXAM: 06/03/2022 CLINICAL HISTORY: Recent pulling injury, pain worse when walking TECHNIQUE: Frontal and lateral images of the lumbar spine are obtained. COMPARISON: CT abdomen and pelvis August 04, 2020 FINDINGS: There are 5 lumbar type vertebral bodies redemonstrated. The lumbar spine shows stable an d satisfactory alignment without evidence of acute fracture or dislocation. Vertebral body heights an d disk space heights remain within normal limits. Mild multilevel anterior spurring. Redemonstration of 4 mm upper pole right renal calculus just below right 11th rib, smaller right-sided calculi less w ell seen. IMPRESSION: As above.
== END | disposition home or self-care (01) ==
LOC: RADXRMAIN 06:50
PROVIDERS: ATTEND Physician Assistant Medical
DX: M54.50 Low back pain, unspecified (principal)
CPT/HCPCS: 72100

== ENCOUNTER → 2022-07-08 | Outpatient (CLI) | payer MEDICAID ==
[2022-07-08 08:21] LABS: Basophils % (A) 0 %; Eosinophils # (A) 0.1 k/uL (0-0.7); Eosinophils % (A) 2 %; HCT 42.7 % (34.0-46.0); HGB 14.1 gm/dL (11.4-16.0); Lymphocytes # (A) 2.2 k/uL (1.0-4.8); Lymphocytes % (A) 39 %; MCH 28.9 pg (25.0-35.0); MCHC 32.9 g/dL (31.0-37.0); MCV 87.7 fL (80.0-100.0); Mean Platelet Volume 6.9; Monocytes # (A) 0.4 k/uL (0-1.0); Monocytes % (A) 7 %; Neutrophils # (A) 2.8 k/uL (1.3-7.7); Neutrophils % (A) 50 %; Platelet Count 262 k/uL (150-450); RBC 4.87 m/uL (3.80-5.40); RDW 13.5 % (11.5-15.5); WBC 5.6 k/uL (3.8-10.6)
[2022-07-08 08:35] LABS: ALT 42 U/L (4-34); AST 36 U/L (14-36); African American GFR (CKD) >90 (>60 ml/min/1.73 sqM); Albumin 4.1 g/dL (3.5-5.0); Albumin/Globulin Ratio 1.5; Alkaline Phosphatase 83 U/L (38-126); Anion Gap 8 mmol/L; Blood Urea Nitrogen 11 mg/dL (7-17); Calcium 8.9 mg/dL (8.4-10.2); Carbon Dioxide 29 mmol/L (22-30); Chloride 103 mmol/L (98-107); Globulin 2.8 g/dL; Glucose 100 mg/dL (74-99); Non-African American GFR(CKD) >90 (>60 ml/min/1.73 sqM); Potassium 4.1 mmol/L (3.5-5.1); Sodium 140 mmol/L (137-145); Total Bilirubin 0.6 mg/dL (0.2-1.3); Total Protein 6.9 g/dL (6.3-8.2)
[2022-07-08 08:52] LABS: T4, Free (Free Thyroxine) 0.94 ng/dL (0.78-2.19)
== END | disposition home or self-care (01) ==
LOC: LABWHC1 07:29
PROVIDERS: ATTEND Family Medicine
DX: D86.89 Sarcoidosis of other sites (principal); E03.9 Hypothyroidism, unspecified; I10 Essential (primary) hypertension; L50.1 Idiopathic urticaria
CPT/HCPCS: 36415; 80053; 82164; 84439; 84443; 84480; 85025

== ENCOUNTER → 2022-08-12 | Outpatient (CLI) | payer MEDICAID ==
[2022-08-12 18:18] LABS: Basophils # (A) 0.01 X 10*3/uL (0.00-0.10); Basophils % (A) 0.2 %; Eosinophils # (A) 0.19 X 10*3/uL (0.04-0.35); Eosinophils % (A) 2.9 %; HCT 39.7 % (37.2-46.3); Immature Grans, Automated 0.3 %; Lymphocytes # (A) 2.03 X 10*3/uL (0.90-5.00); Lymphocytes % (A) 31.3 %; MCH 28.4 pg (27.0-32.0); MCHC 32.7 g/dL (32.0-37.0); MCV 86.9 fL (80.0-97.0); Mean Platelet Volume 9.5 fL (9.5-12.2); Monocytes # (A) 0.59 X 10*3/uL (0.20-1.00); Monocytes % (A) 9.1 %; NRBC Per 100 WBC 0 /100 WBCS (0.0-0.0); Neutrophils # (A) 3.65 X 10*3/uL (1.80-7.70); Neutrophils % (A) 56.2 %; Platelet Count 272 X 10*3/uL (140-440); RBC 4.57 X 10*6/uL (4.10-5.20); RDW 13.3 % (11.5-14.5); WBC 6.49 X 10*3/uL (4.50-10.00)
[2022-08-12 18:58] LABS: African American GFR (CKD) 88.4 (60.0-200.0); Albumin 4.2 g/dL (3.8-4.9); Albumin/Globulin Ratio 1.92 (1.60-3.17); Anion Gap 14.1 mmol/L (10.00-18.00); BUN/Creat Ratio 9.97 Ratio (12.00-20.00); Blood Urea Nitrogen 8.7 mg/dL (9.0-27.0); C Reactive Protein 1.6 mg/dL (0.00-0.80); Carbon Dioxide 24.9 mmol/L (20.0-27.5); Globulin 2.2 g/dL (1.6-3.3); Non-African American GFR(CKD) 76.3 (60.0-200.0); Potassium 3.8 mmol/L (3.5-5.5); Total Bilirubin 0.5 mg/dL (0.30-1.20); Total Protein 6.4 g/dL (6.2-8.2)
[2022-08-12 19:03] LABS: Hepatitis B Surface AB- Quant 3.5 mIU/mL; Hepatitis B Surface Antibody Nonreactive (Nonreactive)
[2022-08-12 19:17] LABS: Erythrocyte Sedimentation Rate 8 mm/Hr (0-30)
[2022-08-12 20:13] LABS: Hepatitis B Surface Antigen Nonreactive (Nonreactive); Hepatitis C IgG Antibody Nonreactive (Nonreactive)
[2022-08-12 22:49] LABS: Immunoglobulin M 74.9 mg/dL (40.0-280.0); Thyroid Peroxidase Antibodies <9.0 U/mL (0.0-33.0)
== END | disposition home or self-care (01) ==
LOC: LABWHC1 14:06
PROVIDERS: ATTEND Dermatology
DX: L50.8 Other urticaria (principal)
CPT/HCPCS: 36415; 80053; 82784; 82955; 84432; 84443; 85025; 85652; 86038; 86140; 86160; 86318; 86376; 86704; 86706; 86707; 86803; 87340; 87350

== ENCOUNTER → 2022-09-06 | Outpatient (CLI) | payer MEDICAID ==
[2022-09-06 15:19] LABS: ALT 38 U/L (4-34); AST 33 U/L (14-36); African American GFR (CKD) >90 (>60 ml/min/1.73 sqM); Albumin 4.2 g/dL (3.5-5.0); Albumin/Globulin Ratio 1.6; Alkaline Phosphatase 97 U/L (38-126); Anion Gap 12 mmol/L; Blood Urea Nitrogen 11 mg/dL (7-17); Carbon Dioxide 25 mmol/L (22-30); Chloride 104 mmol/L (98-107); Globulin 2.7 g/dL; Glucose 95 mg/dL (74-99); Non-African American GFR(CKD) 80 (>60 ml/min/1.73 sqM); Potassium 3.7 mmol/L (3.5-5.1); Sodium 141 mmol/L (137-145); Total Bilirubin 0.9 mg/dL (0.2-1.3); Total Protein 6.9 g/dL (6.3-8.2)
[2022-09-06 19:16] LABS: Basophils # (A) 0.01 X 10*3/uL (0.00-0.10); Basophils % (A) 0.2 %; Eosinophils # (A) 0.18 X 10*3/uL (0.04-0.35); Eosinophils % (A) 3.7 %; HCT 38.9 % (37.2-46.3); HGB 13.1 g/dL (12.0-15.0); Immature Grans, Automated 0.4 %; Lymphocytes # (A) 2.21 X 10*3/uL (0.90-5.00); Lymphocytes % (A) 45.9 %; MCH 29.4 pg (27.0-32.0); MCHC 33.7 g/dL (32.0-37.0); MCV 87.2 fL (80.0-97.0); Mean Platelet Volume 9.8 fL (9.5-12.2); Monocytes # (A) 0.43 X 10*3/uL (0.20-1.00); Monocytes % (A) 8.9 %; NRBC Per 100 WBC 0 /100 WBCS (0.0-0.0); Neutrophils # (A) 1.97 X 10*3/uL (1.80-7.70); Neutrophils % (A) 40.9 %; Platelet Count 245 X 10*3/uL (140-440); RBC 4.46 X 10*6/uL (4.10-5.20); RDW 13.2 % (11.5-14.5); Reticulocyte % 2.29 % (0.10-1.80); WBC 4.82 X 10*3/uL (4.50-10.00)
== END | disposition home or self-care (01) ==
LOC: RADXRMAIN 13:06
PROVIDERS: ATTEND Dermatology
DX: L50.8 Other urticaria (principal)
CPT/HCPCS: 80053; 85025; 85045

== ENCOUNTER → 2022-09-17 | Outpatient (CLI) | payer MEDICAID ==
--- NOTE | 2022-09-17 11:26 | US ---
EXAMINATION TYPE: US abdomen complete DATE OF EXAM: 09/17/2022 COMPARISON: CT August 04, 2020 CLINICAL HISTORY: [id number]. TECHNIQUE: Multiple sonographic images of the abdomen are obtained. FINDINGS: EXAM MEASUREMENTS: Liver Length: 17.8 cm Gallbladder Wall: 0.2 cm CBD: 0.2 cm Spleen: 10.9 cm Right Kidney: 11.6 x 4.4 x 5.5 cm Left Kidney: 11.3 x 5.6 x 5.6 cm [employer] NOTES: Pancreas: Obscured by bowel gas Liver: Increased attenuation, decreased visualization of vessels suggestive of fatty infiltrate, upp er limits of normal in size Gallbladder: cholelithiasis Evidence for sonographic Harrell's sign: No CBD: wnl Spleen: wnl Right Kidney: Multiple scattered echogenic foci, history of multiple kidney stones Left Kidney: No hydronephrosis or masses seen Upper IVC: wnl Abd Aorta: wnl The visualized liver remains heterogeneously hyperechoic. No suspicious focal masses seen on images s aved. The intrahepatic portion of the IVC and visualized abdominal aorta are within normal limits. T here is evidence of shadowing mobile small gallstones. No pericholecystic fluid or abnormal wall thic kening. Common bile duct is unremarkable. Suboptimal visualization of pancreas on images today due to overlying bowel gas. The spleen is unremarkable. Kidneys are symmetric and free of hydronephrosis. Right kidney shows hyperechoic foci correlating with nonobstructing small calculi on CT IMPRESSION: Gallstones without secondary ultrasound evidence for acute cholecystitis. Fatty infiltrat ed hepatocellular disease redemonstrated. Nonobstructing right-sided renal calculi redemonstrated.
== END | disposition home or self-care (01) ==
LOC: RADUSMAIN 10:00
PROVIDERS: ATTEND Physician Assistant Medical
DX: K80.20 Calculus of gallbladder without cholecystitis without obstruction (principal); K76.0 Fatty (change of) liver, not elsewhere classified; N20.0 Calculus of kidney
CPT/HCPCS: 76700

== ENCOUNTER → 2022-11-17 | Outpatient (CLI) | payer MEDICAID ==
[2022-11-17 08:59] LABS: Basophils % (A) 0 %; Eosinophils # (A) 0.2 k/uL (0-0.7); Eosinophils % (A) 4 %; HCT 34.5 % (34.0-46.0); HGB 11.3 gm/dL (11.4-16.0); Hypochromasia Slight; Lymphocytes # (A) 2.2 k/uL (1.0-4.8); Lymphocytes % (A) 40 %; MCH 31.5 pg (25.0-35.0); MCHC 32.8 g/dL (31.0-37.0); MCV 96.1 fL (80.0-100.0); Mean Platelet Volume 7.9; Monocytes # (A) 0.5 k/uL (0-1.0); Monocytes % (A) 9 %; Neutrophils # (A) 2.6 k/uL (1.3-7.7); Neutrophils % (A) 46 %; Platelet Count 240 k/uL (150-450); Poikilocytosis Slight; RBC 3.59 m/uL (3.80-5.40); RDW 14.7 % (11.5-15.5); WBC 5.6 k/uL (3.8-10.6)
[2022-11-17 09:08] LABS: ALT 43 U/L (4-34); AST 35 U/L (14-36); African American GFR (CKD) >90 (>60 ml/min/1.73 sqM); Albumin 4.1 g/dL (3.5-5.0); Albumin/Globulin Ratio 1.6; Alkaline Phosphatase 92 U/L (38-126); Anion Gap 5 mmol/L; Blood Urea Nitrogen 12 mg/dL (7-17); Calcium 8.7 mg/dL (8.4-10.2); Carbon Dioxide 28 mmol/L (22-30); Chloride 108 mmol/L (98-107); Globulin 2.5 g/dL; Glucose 108 mg/dL (74-99); Non-African American GFR(CKD) 89 (>60 ml/min/1.73 sqM); Potassium 4.4 mmol/L (3.5-5.1); Sodium 141 mmol/L (137-145); Total Bilirubin 1.3 mg/dL (0.2-1.3); Total Protein 6.6 g/dL (6.3-8.2)
[2022-11-17 09:19] LABS: Reticulocyte % 5.4 % (0.5-2.0)
== END | disposition home or self-care (01) ==
LOC: LABMAIN 08:04
PROVIDERS: ATTEND Dermatology
DX: L50.8 Other urticaria (principal)
CPT/HCPCS: 80053; 85025; 85045

== ENCOUNTER → 2022-12-21 | Outpatient (CLI) | payer MEDICAID ==
[2022-12-21 10:41] LABS: Basophils # (A) 0 X 10*3/uL (0.00-0.10); Basophils % (A) 0 %; Eosinophils # (A) 0.21 X 10*3/uL (0.04-0.35); Eosinophils % (A) 4.2 %; HCT 38.8 % (37.2-46.3); HGB 12.3 g/dL (12.0-15.0); Immature Grans, Automated 0.2 %; Lymphocytes # (A) 2.31 X 10*3/uL (0.90-5.00); Lymphocytes % (A) 46.2 %; MCH 29.9 pg (27.0-32.0); MCHC 31.7 g/dL (32.0-37.0); MCV 94.4 fL (80.0-97.0); Mean Platelet Volume 9.5 fL (9.5-12.2); Monocytes # (A) 0.54 X 10*3/uL (0.20-1.00); Monocytes % (A) 10.8 %; NRBC Per 100 WBC 0 /100 WBCS (0.0-0.0); Neutrophils # (A) 1.93 X 10*3/uL (1.80-7.70); Neutrophils % (A) 38.6 %; Platelet Count 259 X 10*3/uL (140-440); RBC 4.11 X 10*6/uL (4.10-5.20); RDW 12.5 % (11.5-14.5)
[2022-12-21 11:22] LABS: ALT 44 U/L (8-44); AST 28 U/L (13-35); African American GFR (CKD) 95.2 (60.0-200.0); Albumin 4.3 g/dL (3.8-4.9); Albumin/Globulin Ratio 1.82 (1.60-3.17); Alkaline Phosphatase 78 U/L (41-126); BUN/Creat Ratio 19.12 Ratio (12.00-20.00); Blood Urea Nitrogen 15.7 mg/dL (9.0-27.0); Calcium 9.2 mg/dL (8.7-10.3); Chloride 108 mmol/L (96-109); Chol/HDL Ratio 3.48 Ratio; Globulin 2.3 g/dL (1.6-3.3); Glucose 95 mg/dL (70-110); LDL Cholesterol,Calculated 112.8 mg/dL (0.0-131.0); Non-African American GFR(CKD) 82.2 (60.0-200.0); Sodium 144 mmol/L (135-145); Total Protein 6.6 g/dL (6.2-8.2)
== END | disposition home or self-care (01) ==
LOC: RADXRMAIN 07:06
PROVIDERS: ATTEND Nurse Practitioner Family
DX: Z13.220 Encounter for screening for lipoid disorders (principal); Z13.228 Encounter for screening for other metabolic disorders; D86.89 Sarcoidosis of other sites; L50.1 Idiopathic urticaria
CPT/HCPCS: 80053; 80061; 82164; 82306; 83036; 84443; 85025

== ENCOUNTER → 2023-04-26 | Outpatient (CLI) | payer MEDICAID ==
--- NOTE | 2023-04-26 16:34 | XR ---
EXAMINATION TYPE: XR chest 2V DATE OF EXAM: 04/26/2023 3:49 PM COMPARISON: Chest radiographs from 11/15/2020 TECHNIQUE: XR chest 2V Frontal and lateral views of the chest. CLINICAL INDICATION:Female, 52 years old with history of L50.8; FINDINGS: Lungs/Pleura: There is no evidence of pleural effusion, focal consolidation, or pneumothorax. Pulmonary vascularity: Unremarkable. Heart/mediastinum: Cardiomediastinal silhouette is unremarkable. Musculoskeletal: No acute osseous pathology. IMPRESSION: No acute cardiopulmonary disease/process. No significant change from prior examination.
[2023-04-26 20:11] LABS: Protein, Total 6.5 g/dL (6.2-8.2)
[2023-04-27 10:53] LABS: Alpha Lactalbumin IgE Class CLASS 0
[2023-04-28 06:47] LABS: Albumin 3.98 g/dL (3.80-4.90); Gamma Globulin 0.81 g/dL (0.70-1.50)
== END | disposition home or self-care (01) ==
LOC: LABWHC1 11:51
PROVIDERS: ATTEND Dermatology
DX: L50.8 Other urticaria (principal)
CPT/HCPCS: 36415; 71046; 84165; 86003

== ENCOUNTER → 2024-06-19 | Outpatient (CLI) | payer BC ==
[2024-06-19 11:17] LABS: ALT 39 U/L (8-44); AST 28 U/L (13-35); Albumin 4.3 g/dL (3.8-4.9); Albumin/Globulin Ratio 1.72 Ratio (1.60-3.17); Alkaline Phosphatase 91 U/L (41-126); BUN/Creat Ratio 15.38 Ratio (12.00-20.00); Blood Urea Nitrogen 12.3 mg/dL (9.0-27.0); Calcium 9.2 mg/dL (8.7-10.3); Carbon Dioxide 24.2 mmol/L (21.6-31.8); Chloride 105 mmol/L (96-109); Chol/HDL Ratio 3.91 Ratio; Globulin 2.5 g/dL (1.6-3.3); Glucose 108 mg/dL (70-110); LDL Cholesterol,Calculated 124.8 mg/dL (0.0-131.0); Potassium 4.3 mmol/L (3.5-5.5); Sodium 142 mmol/L (135-145); Total Bilirubin 0.6 mg/dL (0.3-1.2); Total Protein 6.8 g/dL (6.2-8.2)
[2024-06-19 11:31] LABS: Basophils # (A) 0.04 X 10*3/uL (0.00-0.10); Basophils % (A) 0.7 %; Eosinophils # (A) 0.16 X 10*3/uL (0.04-0.35); Eosinophils % (A) 2.7 %; HCT 41.9 % (37.2-46.3); Immature Platelet Fraction 2.5 % (1.1-6.1); Lymphocytes # (A) 2.42 X 10*3/uL (0.90-5.00); Lymphocytes % (A) 41.4 %; MCH 29.2 pg (27.0-32.0); MCHC 33.4 g/dL (32.0-37.0); MCV 87.5 FL (80.0-97.0); Monocytes % (A) 8.6 %; NRBC Per 100 WBC 0 X 10*3/uL (0.00-0.01); Neutrophils # (A) 2.69 X 10*3/uL (1.80-7.70); Neutrophils % (A) 46.1 %; Platelet Count 260 X 10*3/uL (140-440); RBC 4.79 X 10*6/uL (4.10-5.20); RDW 13.2 % (11.5-14.5); WBC 5.84 X 10*3/uL (4.50-10.00)
== END | disposition home or self-care (01) ==
LOC: LABWHC1 07:52
PROVIDERS: ATTEND Family Medicine
DX: Z13.21 Encounter for screening for nutritional disorder (principal); Z13.220 Encounter for screening for lipoid disorders; Z13.228 Encounter for screening for other metabolic disorders; Z13.29 Encounter for screening for other suspected endocrine disorder; D86.89 Sarcoidosis of other sites
CPT/HCPCS: 36415; 80053; 80061; 82164; 82306; 82607; 83036; 84443; 85025

== ENCOUNTER → 2024-10-02 | Outpatient (CLI) | payer BC | END | disposition home or self-care (01) | LOC: LABWHC1 10:44 | PROVIDERS: ATTEND Nurse Practitioner Family | DX: D86.89 Sarcoidosis of other sites (principal) | CPT/HCPCS: 36415; 82164 ==